=== PATIENT | female | born 1940 | race Caucasian/White ===

== ENCOUNTER 2017-05-17 00:42 | Inpatient (IN) ==
[2017-05-17] MEDS ORDERED: *HR* HYDROmorphone (PF) 1 MG/ML SYRINGE IVP STA (04:21)
[2017-05-17] MEDS ORDERED: *HR* OxyCODONE Immed Rel 5 MG TABLET PO PRN (07:06)
[2017-05-17 07:18] LABS: Prothrombin Time 10.5 Seconds (9.4-12.1)
[2017-05-17 07:24] LABS: BUN/Creatinine Ratio 27 (6-26); Blood Urea Nitrogen 20 mg/dL (7-20); Calcium 8.3 mg/dL (8.6-10.8); Carbon Dioxide 31 mEq/L (19-29); Chloride 93 mEq/L (98-109); Glucose 100 mg/dL (70-99); Magnesium 1.3 mg/dL (1.6-2.6); Osmolality,Calculated 275 (280-300); Potassium 3.5 mEq/L (3.5-4.5); Sodium 131 mEq/L (136-145); eGFR For African Americans > 60 (> 60); eGFR For Non-African Americans > 60 (> 60)
--- NOTE | 2017-05-17 07:39 | Orthopedic Consult Note ---
Date of Encounter: 05/17/17 Time of Encounter: 07:37 History of Present Illness HPI: Ms. Castañeda is a 77 year old female Status post fall yesterday transferred over from [facility] patient tripped over something. Denies head trauma. Denies loss of conscious. Patient will make an alert and oriented 3 Right lower extremity shortened and externally rotated Decreased range of motion secondary to pain Neurovascular intact X-rays show displaced comminuted intertrochanteric hip fracture. Recommendation open reduction into her joint fixation Plan for surgery tomorrow, We reviewed the risks and benefits as well as recovery. All questions were answered. The patient agreed to this treatment plan and appeared to understand the plan is reviewed. Past Med Surg Social Fam HX - Past Medical History Medical history: COPD, coronary artery disease, hypertension, thyroid disease Psychiatric history: anxiety, depression - Past Surgical History Surgical History: appendectomy, hysterectomy - Social History Smoking Status: Current every day smoker Packs per day: 0.5 Smokeless Tobacco Status: No Alcohol use: recent Drug use: none - Family History Mother Living Status: Age at : 56 Cause of : [place] Hx Family Cardiac Disorders: Yes ([place]) Father Living Status: Age at : 78 Cause of : Prostate Cancer Hx Family Respiratory Disorders: Yes (Asthma) Hx Family Cancer: Yes (Prostate Cancer) Medications and Allergies ALPRAZolam [Xanax 0.25 MG Tablet] 0.25 mg PO DAILY 05/17/17 [History] Aspirin [Lo-Dose Aspirin EC] 81 mg PO DAILY 05/17/17 [History] Atorvastatin [Lipitor] 10 mg PO HS 05/17/17 [History] Benazepril HCl [Lotensin] 20 mg PO DAILY 05/17/17 [History] DiphenhydraMINE [Benadryl] 25 mg PO Q6HR PRN 05/17/17 [History] Diphenoxylate/Atropine [Lomotil 2.5 mg/0.025 mg] 1 tab PO DAILY 05/17/17 [ History] Escitalopram Oxalate 10 mg PO DAILY 05/17/17 [History] Escitalopram [Lexapro] 10 mg PO DAILY 05/17/17 [History] Fluticasone/Salmeterol [Advair 500-50 Diskus] 1 each IH BID 05/17/17 [History] Gabapentin [Neurontin] 300 mg PO TID 05/17/17 [History] GuaiFENesin/Pseudophedrine [Mucinex D] 1 each PO DAILY 05/17/17 [History] Ipratropium/Albuterol Sulfate [Combivent Respimat Inhal [place]] 4 gm IH TID 05/17 [History] Levothyroxine [Synthroid] 50 mcg PO 0630 05/17/17 [History] Nicotine [Nicotrol] 10 mg IH DAILY 05/17/17 [History] 3 Allergy/AdvReac Type Severity Reaction Status Date / Time Penicillins Allergy Rash Verified 05/17/17 02:27 All Systems Reviewed: A 10-system review of systems was performed and is negative for pertinent findings except as documented above in the HPI. Physical Exam - Constitutional Vitals: Temp Pulse Resp BP Pulse Ox 97.7 F 75 14 101/61 97 05/17/17 03:56 05/17/17 06:12 05/17/17 03:56 05/17/17 06:12 05/17/17 03:56 Results - Labs Result Diagrams: 05/17/17 06:39 Labs: Abnormal lab results Sodium 131 mEq/L (136-145) L 05/17/17 06:39 Chloride 93 mEq/L (98-109) L 05/17/17 06:39 Carbon Dioxide 31 mEq/L (19-29) H 05/17/17 06:39 BUN/Creatinine Ratio 27 (6-26) H 05/17/17 06:39 Glucose 100 mg/dL (70-99) H 05/17/17 06:39 Calculated Osmolality 275 (280-300) L 05/17/17 06:39 Calcium 8.3 mg/dL (8.6-10.8) L 05/17/17 06:39 Magnesium 1.3 mg/dL (1.6-2.6) L 05/17/17 06:39 All other labs normal. Consult Discharge Plan - Plan Referrals: Peter Magallanes MD [Primary Care Provider] -
[2017-05-17 07:50] LABS: Basophils % 0.2 %; Eosinophils # 0.1 K/mcL (0.0-0.6); Eosinophils % 0.9 %; Hemoglobin 9.3 g/dL (11.5-15.4); Immature Granulocytes % 0.5 % (0-4); Lymphocytes # 0.7 K/mcL (0.6-4.6); Lymphocytes % 8.5 %; Mean Corpuscular HGB Conc 33.2 g/dL (31.6-35.5); Mean Corpuscular Hemoglobin 31.3 pg (28.0-33.3); Mean Corpuscular Volume 94.3 fL (83.0-100.0); Mean Platelet Volume 9.9 fL (9.4-12.4); Monocytes # 0.9 K/mcL (0.0-1.3); Monocytes % 10.4 %; Neutrophils # 6.9 K/mcL (1.6-8.9); Platelet Count 212 K/mcL (140-400); Red Blood Count 2.97 M/mcL (3.82-4.97); Red Cell Distribution Width 14.5 % (11.5-14.5); Segmented Neutrophils % 79.5 %
[2017-05-17] MEDS ORDERED: *HR* Morphine 2 MG/ML SYRINGE IVP PRN (08:10)
[2017-05-17] MEDS ORDERED: Acetaminophen 325 MG TABLET PO PRN (08:10)
[2017-05-17] MEDS ORDERED: Naloxone 0.4 MG/ML INJ IVP PRN (08:10)
[2017-05-17] MEDS ORDERED: Ondansetron 4 MG/2 ML VIAL IVP PRN (08:10)
[2017-05-17] MEDS ORDERED: Magnesium Sulfate 2 GM in D5% in Water 100 ML IVPB ONE ×2 (08:13→14:45)
[2017-05-17] MEDS ORDERED: Pantoprazole 40 MG VIAL IVP SCH ×2 (09:00→15:00)
[2017-05-17] MEDS ORDERED: Magnesium Oxide 400 MG TABLET PO SCH (09:00)
[2017-05-17 09:03] LABS: Hematocrit 28.3 % (35.3-44.9); Hemoglobin 9.4 g/dL (11.5-15.4)
[2017-05-17 09:11] LABS: Prothrombin Time 10.4 Seconds (9.4-12.1)
[2017-05-17 09:13] LABS: Activated Partial Thrombo Time 31.8 Seconds (26.0-36.0)
[2017-05-17 09:22] LABS: eGFR For African Americans > 60 (> 60); eGFR For Non-African Americans > 60 (> 60)
--- NOTE | 2017-05-17 09:36 | Event Note ---
Date of Encounter: 05/17/17 Time of Encounter: 09:34 Magnus seen and exained with [employer]. Right femur fracture after echanical fall. Surgery will be performed. She has poor functional capacity, multiple clinical predictors and coronary artery disease equivelant (caroitd disease) wih no prior cardiac evaluation. Will ask for cardiac clearance. Slight Hb drop due to femur fracture. Full code
--- NOTE | 2017-05-17 10:08 | Internal Med History&Physical ---
Date of Encounter: 05/17/17 Time of Encounter: 08:00 Internal Medicine - H&P: HPI Chief complaint: Abdominal pain/Rectal bleeding Admitted From: Emergency Dept Plans for Post Hospital Care: Home History of present illness: Ms. Castañeda is a 77 year old female wit medical history of arthritis, bladder cancer, alcoholic cirrhosis, aortic aneurysm, and hypertension presents from the ED with chief complaint of right-sided abdominal pain for the past 3-4 days which is becoming progressively worse. Past Med Surg Social Fam HX - Past Medical History Medical history: COPD, coronary artery disease, hypertension, thyroid disease Psychiatric history: anxiety, depression - Past Surgical History Surgical History: appendectomy, hysterectomy - Social History Smoking Status: Current every day smoker Packs per day: 0.5 Smokeless Tobacco Status: No Alcohol use: recent Drug use: none - Family History Mother Living Status: Age at : 56 Cause of : [place] Hx Family Cardiac Disorders: Yes ([place]) Father Living Status: Age at : 78 Cause of : Prostate Cancer Hx Family Respiratory Disorders: Yes (Asthma) Hx Family Cancer: Yes (Prostate Cancer) Internal Medicine - H&P: Meds ALPRAZolam [Xanax 0.25 MG Tablet] 0.25 mg PO DAILY 05/17/17 [History] Aspirin [Lo-Dose Aspirin EC] 81 mg PO DAILY 05/17/17 [History] Atorvastatin [Lipitor] 10 mg PO HS 05/17/17 [History] Benazepril HCl [Lotensin] 20 mg PO DAILY 05/17/17 [History] DiphenhydraMINE [Benadryl] 25 mg PO Q6HR PRN 05/17/17 [History] Diphenoxylate/Atropine [Lomotil 2.5 mg/0.025 mg] 1 tab PO DAILY 05/17/17 [ History] Escitalopram Oxalate 10 mg PO DAILY 05/17/17 [History] Escitalopram [Lexapro] 10 mg PO DAILY 05/17/17 [History] Fluticasone/Salmeterol [Advair 500-50 Diskus] 1 each IH BID 05/17/17 [History] Gabapentin [Neurontin] 300 mg PO TID 05/17/17 [History] GuaiFENesin/Pseudophedrine [Mucinex D] 1 each PO DAILY 05/17/17 [History] Ipratropium/Albuterol Sulfate [Combivent Respimat Inhal [place]] 4 gm IH TID 05/17 [History] Levothyroxine [Synthroid] 50 mcg PO 0630 05/17/17 [History] Nicotine [Nicotrol] 10 mg IH DAILY 05/17/17 [History] 3 Allergy/AdvReac Type Severity Reaction Status Date / Time Penicillins Allergy Rash Verified 05/17/17 02:27 All Systems PM: A 10-system review of systems was performed and is negative for pertinent findings except as documented above in the HPI. - Constitutional Vitals: Temp Pulse Resp BP Pulse Ox 97.6 F 89 14 94/61 95 05/17/17 07:43 05/17/17 07:43 05/17/17 07:43 05/17/17 07:43 05/17/17 07:43 Internal Med - H&P Results - Labs CBC & Chem 7: 05/17/17 08:47 05/17/17 08:47 Labs: Short CBC 05/17/17 05/17/17 Range/Units 06:39 08:47 WBC 8.7 (4.3-11.1) K/mcL Hgb 9.3 L 9.4 L (11.5-15.4) g/dL Hct 28.0 L 28.3 L (35.3-44.9) % Plt Count 212 (140-400) K/mcL Neutrophils # 6.9 (1.6-8.9) K/mcL BMP 05/17/17 05/17/17 06:39 08:47 Sodium 131 L Potassium 3.5 Chloride 93 L Carbon Dioxide 31 H BUN 20 Creatinine 0.74 0.70 Glucose 100 H Calcium 8.3 L - Impressions ITS Impressions Head CT 05/17/17 02:30 IMPRESSION: No acute intracranial abnormality. D/ / Hossein Murphy MD / Hossein Murphy MD Interpreting Provider: Hossein Murphy MD
[2017-05-17] MEDS: Ipratropium/Albuterol Neb 3 ML IH SCH ×3 (10:19→23:13)
--- NOTE | 2017-05-17 12:18 | Cardiology Consult Note ---
<Flavio Dwyer - Last Filed: 05/17/17 12:10> Date of Encounter: 05/17/17 Time of Encounter: 11:50 Assessment and Plan (1) Pre-operative cardiovascular examination Current Visit: Yes Status: Acute No previous history of CAD. Stable SOB in the setting of COPD. No anginal symptoms. EKG shows SR with no acute ST changes. Reports history of mitral valve prolapse. TTE 2012 showed normal EF and mild mitral regurgitation. TTE ordered by primary team. If no concerning findings on TTE no further cardiac testing indicated. Acceptable risk for surgery. Discussion w patient/family: The assessment and plan as outlined above was discussed with the patient and/or family members who expressed understanding and agreement. All questions were answered. Thank you for involving us in the care of your patient. Please call with any questions. History of Present Illness Consult date: 05/17/17 Consult reason: Pre-operative risk assessment Chief complaint: Fall History of present illness: Ms. Castañeda is a 77 year old female with a past medical history of COPD on home O2 , HTN, anemia, and mitral valve prolapse who presented after tripping at home and falling on her her right hip. She developed a right femur fracture. Cardiology consulted for cardiovascular risk assessment. She denies history of CAD. Reports being told she had MVP 30 years ago. Denies dizziness or syncope. Denies chest pain or palpitations. Denies orthopnea , PND or edema. She is on home O2 mostly at night for COPD. Denies increasing SOB. She is able to climb some stairs and walks short distances. She has limited mobility after vertebrae fracture one and a half years ago. Previous cardiac work-up: TTE 2012- EF 60%. Mild diastolic dysfunction. Mild MR. Past Med Surg Social Fam HX - Past Medical History Attestation: Yes The following information was validated with the patient. Medical history: COPD, hypertension, thyroid disease Psychiatric history: anxiety, depression - Past Surgical History Surgical History: appendectomy, hysterectomy - Social History Smoking Status: Current every day smoker Packs per day: 0.5 Smokeless Tobacco Status: No Alcohol use: recent Drug use: none - Family History Mother Living Status: Age at : 56 Cause of : [place] Hx Family Cardiac Disorders: Yes ([place]) Father Living Status: Age at : 78 Cause of : Prostate Cancer Hx Family Respiratory Disorders: Yes (Asthma) Hx Family Cancer: Yes (Prostate Cancer) Medications and Allergies ALPRAZolam [Xanax 0.25 MG Tablet] 0.25 mg PO DAILY 05/17/17 [History] Aspirin [Lo-Dose Aspirin EC] 81 mg PO DAILY 05/17/17 [History] Atorvastatin [Lipitor] 10 mg PO HS 05/17/17 [History] Benazepril HCl [Lotensin] 20 mg PO DAILY 05/17/17 [History] DiphenhydraMINE [Benadryl] 25 mg PO Q6HR PRN 05/17/17 [History] Escitalopram [Lexapro] 10 mg PO DAILY 05/17/17 [History] Fluticasone/Salmeterol [Advair 500-50 Diskus] 1 puff IH BID 05/17/17 [History] Gabapentin [Neurontin] 300 mg PO TID 05/17/17 [History] Ipratropium/Albuterol Sulfate [Combivent Respimat Inhal [place]] 1 puff IH TID [History] Levothyroxine [Synthroid] 75 mcg PO DAILY 05/17/17 [History] hydroCHLOROthiazide [Hydrochlorothiazide] 25 mg PO DAILY 05/17/17 [History] 3 Allergy/AdvReac Type Severity Reaction Status Date / Time Penicillins Allergy Rash Verified 05/17/17 02:27 All Systems Review: A 10-system review of systems was performed and is negative for pertinent findings except as documented above in the HPI. Physical Examination Vital Signs, Last 4 Hours Temp Pulse Resp BP Pulse Ox 05/17/17 10:37 98.2 F 85 14 98/63 94 General: Conversant, No Apparent Distress, Other (assessment limited to immobility from hip fracture and echocardiogram in progress. ) HEENT: Atraumatic, Normocephaly, Mucus Membranes Moist Neck: No JVD, Normal carotid pulses Cardiac: Reg Rate and Rhythm, Normal S1 and S2 Lungs: Normal Breath Sounds, No Wheeze, Rales, Rhonchi Neuro: Alert and responsive, No focal deficits noted Abdomen: Soft, Non-Tender Skin: No rashes noted on visualized skin Musculoskeletal: No Chest Wall Tenderness Extremities: No Clubbing, No Cyanosis, Normal Pulses, Other (trace edema left ankle) Results 05/17/17 08:47 05/17/17 08:47 Lab Results 05/17/17 05/17/17 05/17/17 06:39 06:39 06:39 WBC 8.7 Hgb 9.3 L Hct 28.0 L Plt Count 212 INR 1.0 APTT Sodium 131 L Potassium 3.5 Chloride 93 L Carbon Dioxide 31 H BUN 20 Creatinine 0.74 Glucose 100 H Calcium 8.3 L Magnesium 1.3 L 05/17/17 05/17/17 05/17/17 08:47 08:47 08:47 WBC Hgb 9.4 L Hct 28.3 L Plt Count INR 1.0 APTT 31.8 Sodium Potassium Chloride Carbon Dioxide BUN Creatinine 0.70 Glucose Calcium Magnesium - Imaging and Cardiology Echo: pending, report reviewed - EKG Interpretation EKG results cardiology: personally reviewed (SR with no acute ST changes) Consult Discharge Plan - Plan Referrals: Peter Magallanes MD [Primary Care Provider] - <JoemarklandyDomingo - Last Filed: 05/17/17 22:15> Date of Encounter: 05/17/17 - Attending Attestation I have personally performed a face to face evaluation on this patient. I have reviewed and agree with the care plan. History and Exam by me shows: 77 YOF with no previous cardiac hx and no CRF's presents after R femur fracture. EKG NSR unremarkable and ECHO with preserved EF and no major valvular abnormalities. 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 Low to moderate risk for cardiac events with surgery. Assessment and Plan Discussion w patient/family: The assessment and plan as outlined above was discussed with the patient and/or family members who expressed understanding and agreement. All questions were answered. Thank you for involving us in the care of your patient. Please call with any questions. History of Present Illness History of present illness: Ms. Castañeda is a 77 year old female All Systems Review: A 10-system review of systems was performed and is negative for pertinent findings except as documented above in the HPI. Physical Examination Vital Signs, Last 4 Hours Temp Pulse Resp BP Pulse Ox 05/17/17 20:48 98.0 F 67 17 95/55 95 Results 05/17/17 08:47 05/17/17 08:47 Lab Results 05/17/17 05/17/17 05/17/17 06:39 06:39 06:39 WBC 8.7 Hgb 9.3 L Hct 28.0 L Plt Count 212 INR 1.0 APTT Sodium 131 L Potassium 3.5 Chloride 93 L Carbon Dioxide 31 H BUN 20 Creatinine 0.74 Glucose 100 H Calcium 8.3 L Magnesium 1.3 L 05/17/17 05/17/17 05/17/17 08:47 08:47 08:47 WBC Hgb 9.4 L Hct 28.3 L Plt Count INR 1.0 APTT 31.8 Sodium Potassium Chloride Carbon Dioxide BUN Creatinine 0.70 Glucose Calcium Magnesium
--- NOTE | 2017-05-17 12:31 | Internal Med History&Physical ---
<DaraJuancho encarnacion - Last Filed: 05/17/17 13:15> Date of Encounter: 05/17/17 Time of Encounter: 08:00 Assessment and Plan (1) Fracture of right femur Current visit: Yes Status: Acute Patient reports tripping and falling yesterday evening and landing on her right hip. Patient was seen at [facility] and transferred to [place] ED. imaging from [facility] shows acute, varus angulated, comminuted intertrochanteric fracture of the right femur with no additional fractures. Orthopedic consult ordered who will perform surgical intervention following medical and cardiology clearance. Pt. reports pain >10 with movement of leg, but 1-2 with stabilization. Stair-step pain medication for pain management. NPO at midnight for surgery. PT/OT consults ordered for post-surgical recommendations. Falls/safety precautions post-surgery. Patient high risk for further morbidity based on current symptoms, surgical intervention , and risk factors. Inpatient. Qualifiers: Encounter type: initial encounter Femur location: intertrochanteric Fracture type: closed Fracture alignment: nondisplaced Qualified Code(s): S72.144A - Nondisplaced intertrochanteric fracture of right femur, initial encounter for closed fracture (2) Pre-operative cardiovascular examination Current visit: Yes Status: Acute Cardiology consult ordered and discussed w/Dr. Loyd for surgical clearance for repair of right femur fx. Previous TTE in 2012 showed EF of 60% w/mild diastolic dysfunction and mild MR. Revised cardiac risk index (RCRI) is 1.0% ( one risk factor of CAD according to [facility] medical records). (3) COPD (chronic obstructive pulmonary disease) Current visit: Yes Status: Chronic Hx of chronic COPD. Patient reports mild SOB d/t current COPD dx and smoking status. Continue pts. inhalers, DuoNebs Q8, supplemental O2 w/titration and SpO2 monitoring. Qualifiers: COPD type: emphysema Emphysema type: unspecified Qualified Code(s): J43.9 - Emphysema, unspecified (4) HTN (hypertension) Current visit: Yes Status: Chronic Hx of chronic HTN. Monitor pt. and VS. Lisinopril 20 mg daily ordered. Qualifiers: Hypertension type: essential hypertension Qualified Code(s): I10 - Essential (primary) hypertension (5) HLD (hyperlipidemia) Current visit: Yes Status: Chronic Hx of chronic HLD. Lipid panel ordered in a.m. labs. Continue patient's Lipitor. Qualifiers: Hyperlipidemia type: pure hypercholesterolemia Qualified Code(s): E78.00 - Pure hypercholesterolemia, unspecified; E78.0 - Pure hypercholesterolemia (6) History of shingles Current visit: Yes Status: Chronic Pt reports recent shingles with head and face affected. Lesions have healed but nerve pain remains. Continue pts. Neurontin. (7) Carotid artery stenosis, asymptomatic Current visit: Yes Status: Chronic Hx of carotid artery stenosis and CAD. Asymptomatic. Repeat carotid Doppler duplex imaging. Will continue patient's HTN and HLD medications as well as aspirin therapy. Qualifiers: Laterality: unspecified laterality Qualified Code(s): I65.29 - Occlusion and stenosis of unspecified carotid artery (8) Hx of fall Current visit: Yes Status: Chronic Hx of chronic falls at home. Falls/safety precautions. PT/OT consults ordered to assess for post-discharge planning. (9) Thyroid disease Current visit: Yes Status: Chronic Hx of chronic thyroid disease. Continue patient's Synthroid. (10) DVT prophylaxis Current visit: Yes Status: Acute Bilateral SCDs of the LEs for DVT prophylaxis d/t impending surgical intervention for femur fx repair. Internal Medicine - H&P: HPI Chief complaint: Right leg injury/Fracture Admitted From: Emergency Dept Plans for Post Hospital Care: Home History of present illness: Ms. 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 Patient reports she fell after tripping injuring her right hip. Patient reports right lip pain >10 with movement of leg, otherwise 1-2 if leg stabilized and SOB r/t COPD. Patient denies recent illness, nausea, vomiting, fever, chills, abdominal pain, chest pain, lightheadedness, dizziness, headache, numbness, tingling, changes in vision, unusual bleeding, presyncope, or syncope. Past Med Surg Social Fam HX - Past Medical History Source: patient, old records reviewed, obtained from family Medical history: COPD, hypertension, thyroid disease, other (Strokes of the eye vasculature, chronic anemia, mitral valve prolapse) Psychiatric history: anxiety, depression - Past Surgical History Surgical History: appendectomy, hysterectomy, orthopedic, other - Social History Smoking Status: Current every day smoker Packs per day: 0.5 PPD Smokeless Tobacco Status: No Alcohol use: recent Drug use: none Current living situation: Home, With Family Activity Level: Independent ambulation Recent Out of Country Travel Within the Last 8 Weeks: No Exposure or Possible Exposure to Illness During Travel: No - Family History Mother Race: Family Member Ethnicity: Non- Living Status: Age at : 56 Cause of : DE Hx Family Cardiac Disorders: Yes (DE) Father Race: Family Member Ethnicity: Non- Living Status: Age at : 78 Cause of : Prostate Cancer Hx Family Respiratory Disorders: Yes (Asthma) Hx Family Cancer: Yes (Prostate Cancer) Brother Race: Family Member Ethnicity: Non- Living Status: Age at : 79 Cause of : Prostate cancer Hx Family Cancer: Yes (Prostate) Sister Race: Family Member Ethnicity: Non- Living Status: Age at : 42 Cause of : Colon cancer Hx Family Cardiac Disorders: Yes (Stroke, DE) Hx Family Cancer: Yes (Colon) Son Race: Family Member Ethnicity: Non- Living Status: Age at : 42 Cause of : Squamous cell carcinoma Hx Family Cancer: Yes (SCC) Internal Medicine - H&P: Meds ALPRAZolam [Xanax 0.25 MG Tablet] 0.25 mg PO DAILY 05/17/17 [History] Aspirin [Lo-Dose Aspirin EC] 81 mg PO DAILY 05/17/17 [History] Atorvastatin [Lipitor] 10 mg PO HS 05/17/17 [History] Benazepril HCl [Lotensin] 20 mg PO DAILY 05/17/17 [History] DiphenhydraMINE [Benadryl] 25 mg PO Q6HR PRN 05/17/17 [History] Escitalopram [Lexapro] 10 mg PO DAILY 05/17/17 [History] Fluticasone/Salmeterol [Advair 500-50 Diskus] 1 puff IH BID 05/17/17 [History] Gabapentin [Neurontin] 300 mg PO TID 05/17/17 [History] Ipratropium/Albuterol Sulfate [Combivent Respimat Inhal [place]] 1 puff IH TID [History] Levothyroxine [Synthroid] 75 mcg PO DAILY 05/17/17 [History] hydroCHLOROthiazide [Hydrochlorothiazide] 25 mg PO DAILY 05/17/17 [History] 3 Allergy/AdvReac Type Severity Reaction Status Date / Time Penicillins Allergy Rash Verified 05/17/17 02:27 All Systems PM: A 10-system review of systems was performed and is negative for pertinent findings except as documented above in the HPI. - Constitutional Constitutional: no chills, no fever(s), no night sweats - EENT Eyes: no change in vision, no discharge, no pain, no photophobia Ears: no ear discharge, no ear pain, no tinnitus Nose, mouth and throat: no dysphagia, no nasal discharge, no neck pain, no sore throat - Breasts Breasts: as per HPI - Cardiovascular Cardiovascular ROS IM: no chest pain, no diaphoresis, no dyspnea, no lightheadedness, no palpitations, no syncope - Respiratory Respiratory: as per HPI, no cough, no dyspnea, no wheezing, no excessive phlegm production - Gastrointestinal Gastrointestinal: no abdominal pain, no diarrhea, no hematemesis, no hematochezia, no melena, no nausea, no vomiting - Genitourinary Genitourinary: no change in urinary stream, no dysuria, no flank pain, no hematuria Menstruation: as per HPI, post hysterectomy - Musculoskeletal Musculoskeletal ROS IM: as per HPI, other (Right leg pain d/t femur fx), no numbness, no tingling - Integumentary Integumentary IM: no rash, no unusual bruising - Neurological Neurological ROS: no confusion, no convulsions, no focal weakness, no numbness, no tingling, no tremor(s) - Psychiatric Psychiatric: as per HPI - Endocrine Endocrine IM: as per HPI - Hematologic/Lymphatic Hematologic/Lymphatic: no easy bruising - Allergic/Immunologic Allergic/Immunologic: as per HPI - Constitutional Vitals: Temp Pulse Resp BP Pulse Ox 98.2 F 85 14 98/63 94 05/17/17 10:37 05/17/17 10:37 05/17/17 10:37 05/17/17 10:37 05/17/17 10:37 General appearance: Present: cooperative, mild distress, A&O X 3, pleasant, answers questions appropriately - Head Head exam: Present: atraumatic, normocephalic - Eye Eye exam: Present: PERRL, conjuntiva pink, sclera anicteric Pupils: Present: PERRL - ENT ENT exam: Present: normal exam, normal external ear exam - Neck Neck exam general surgery: Present: normal inspection, supple, trachea midline. Absent: lymphadenopathy - Respiratory Respiratory exam: Present: CTAB. Absent: accessory muscle use, rales, rhonchi, wheezes - Cardiovascular Cardiovascular exam: Present: RRR, +S1, +S2. Absent: diastolic murmur, gallop, rubs, systolic murmur - GI/Abdominal GI/Abdominal exam: Present: normal bowel sounds, soft, no peritoneal signs. Absent: distended, tenderness - Rectal Rectal exam: Present: deferred - Additional comments: exam deferred. - Extremities Exam Extremities exam: Present: tenderness (Right thigh and hip pain), warm, radial pulses palpable and symmetrical. Absent: calf tenderness, cyanotic, pedal edema - Expanded Lower Extremities Exam Upper Leg exam: Present: tenderness (Right thigh and hip pain) - Back Exam Back exam: Present: normal inspection - Neurological Exam Neurological exam: Present: CN II-XII intact, oriented X3, no focal deficits. Absent: pronater drift, facial droop, speech deficit - Psychiatric Psychiatric exam: Present: normal affect, normal mood - Skin Skin exam: Present: dry, intact Internal Med - H&P Results - Labs CBC & Chem 7: 05/17/17 08:47 05/17/17 08:47 Labs: Short CBC 05/17/17 05/17/17 Range/Units 06:39 08:47 WBC 8.7 (4.3-11.1) K/mcL Hgb 9.3 L 9.4 L (11.5-15.4) g/dL Hct 28.0 L 28.3 L (35.3-44.9) % Plt Count 212 (140-400) K/mcL Neutrophils # 6.9 (1.6-8.9) K/mcL BMP 05/17/17 05/17/17 06:39 08:47 Sodium 131 L Potassium 3.5 Chloride 93 L Carbon Dioxide 31 H BUN 20 Creatinine 0.74 0.70 Glucose 100 H Calcium 8.3 L - Impressions ITS Impressions Head CT 05/17/17 02:30 IMPRESSION: No acute intracranial abnormality. D/ / Hossein Murphy MD / Hossein Murphy MD Interpreting Provider: Hossein Murphy MD - Diagnostic Studies CT scan - head Additional comments: Impressions Head CT 05/17/17 02:30 IMPRESSION: No acute intracranial abnormality. D/ / Hossein Murphy MD / Hossein Murphy MD Interpreting Provider: Hossein Murphy MD <Queta Talbert - Last Filed: 05/17/17 23:07> Date of Encounter: 05/17/17 Internal Medicine - H&P: HPI History of present illness: Ms. Castañeda is a 77 year old female All Systems PM: A 10-system review of systems was performed and is negative for pertinent findings except as documented above in the HPI. - Constitutional Vitals: Temp Pulse Resp BP Pulse Ox 98.0 F 67 17 95/55 95 05/17/17 20:48 05/17/17 20:48 05/17/17 20:48 05/17/17 20:48 05/17/17 20:48 Internal Med - H&P Results - Labs CBC & Chem 7: 05/17/17 08:47 05/17/17 08:47 Labs: Short CBC 05/17/17 05/17/17 Range/Units 06:39 08:47 WBC 8.7 (4.3-11.1) K/mcL Hgb 9.3 L 9.4 L (11.5-15.4) g/dL Hct 28.0 L 28.3 L (35.3-44.9) % Plt Count 212 (140-400) K/mcL Neutrophils # 6.9 (1.6-8.9) K/mcL BMP 05/17/17 05/17/17 06:39 08:47 Sodium 131 L Potassium 3.5 Chloride 93 L Carbon Dioxide 31 H BUN 20 Creatinine 0.74 0.70 Glucose 100 H Calcium 8.3 L - Impressions ITS Impressions Head CT 05/17/17 02:30 IMPRESSION: No acute intracranial abnormality. D/ / Hossein Murphy MD / Hossein Murphy MD Interpreting Provider: Hossein Murphy MD Echocardiogram 05/17/17 09:28 Impressions: LVEF 60-65%. Normal LV chamber size, wall thickness and function. Mild left ventricular diastolic dysfunction. Moderately sclerotic aortic valve leaflets. Mild pulmonary hypertension. There is a small pericardial effusion present. There is no echocardiographic evidence of tamponade. Aortic Valve Gradient not evaluated Left Ventricular Wall Motion: Rest Echo Findings All wall segments showed normal motion. Findings: Study Quality * Technically adequate exam. Left Ventricle * LVEF 60-65%. * Normal LV chamber size, wall thickness and function. * Mild left ventricular diastolic dysfunction. Right Ventricle * Normal right ventricular structure and function. Left Atrium * Normal left atrial size. Right Atrium * Normal right atrial size. Aortic Valve * Trileaflet aortic valve. * Moderately sclerotic aortic valve leaflets. * No aortic regurgitation. * Aortic valve leaflets are not restricted. Mitral Valve * Normal mitral valve structure and function. Tricuspid Valve * Estimated RVSP is 39 mmHg. * Estimated RA pressure is 5 mmHg. * Mild pulmonary hypertension. Pulmonic Valve * Pulmonic valve not well visualized. Aorta * Normally sized aortic root. Pericardium * There is a small pericardial effusion present. * There is no echocardiographic evidence of tamponade. IVC * Normal IVC dimensions and inspiratory collapse. - Attending Attestation Patient evaluated and assessed along with MILL ATTENDANT and agree with the detailed H&P below, except- Patient reported to drink half bottle of wine per day. Will do CIWA protocol and monitor for withdrawal symptoms.
[2017-05-17] MEDS: 0.9 % Sodium Chloride 1,000 ML IVC SCH (15:25)
[2017-05-17] MEDS: Gabapentin 300 MG CAPSULE PO SCH ×2 (15:26→20:15)
[2017-05-17] MEDS: *HR* HYDROcodone/Acet 5/325 mg TABLET PO PRN (20:15)
[2017-05-18] MEDS: 0.9 % Sodium Chloride 1,000 ML IVC SCH (01:02)
[2017-05-18] MEDS: *HR* HYDROcodone/Acet 5/325 mg TABLET PO PRN ×2 (01:06→05:08)
[2017-05-18 05:03] LABS: Basophils % 0.3 %; Eosinophils # 0.1 K/mcL (0.0-0.6); Eosinophils % 1.4 %; Hematocrit 23.9 % (35.3-44.9); Immature Granulocytes % 0.3 % (0-4); Lymphocytes # 0.6 K/mcL (0.6-4.6); Mean Corpuscular HGB Conc 32.6 g/dL (31.6-35.5); Mean Corpuscular Hemoglobin 31.5 pg (28.0-33.3); Mean Corpuscular Volume 96.4 fL (83.0-100.0); Mean Platelet Volume 10.1 fL (9.4-12.4); Monocytes # 0.9 K/mcL (0.0-1.3); Monocytes % 12.8 %; Neutrophils # 5.1 K/mcL (1.6-8.9); Platelet Count 158 K/mcL (140-400); Red Blood Count 2.48 M/mcL (3.82-4.97); Red Cell Distribution Width 14.6 % (11.5-14.5); Segmented Neutrophils % 76.2 %
[2017-05-18 05:06] LABS: Hemoglobin 7.8 g/dL (11.5-15.4)
[2017-05-18 05:28] LABS: Hemoglobin A1C 4.6 %
[2017-05-18 05:38] LABS: Alanine Aminotransferase 9 Units/L (0-55); Albumin 2.4 g/dL (3.5-5.0); Albumin/Globulin Ratio 1.1 (1.1-2.2); Alkaline Phosphatase 51 Units/L (38-126); Aspartate Amino Transferase 17 Units/L (5-34); BUN/Creatinine Ratio 20 (6-26); Bilirubin,Total 0.5 mg/dL (0.2-1.2); Blood Urea Nitrogen 15 mg/dL (7-20); Calcium 7.9 mg/dL (8.6-10.8); Carbon Dioxide 31 mEq/L (19-29); Chloride 95 mEq/L (98-109); Cholesterol 107 mg/dL (< 200); Globulin 2.2 g/dL (2.4-3.5); Glucose 98 mg/dL (70-99); HDL Cholesterol 54 mg/dL (40-59); LDL Cholesterol,Calculated 43 mg/dL (0-99); Magnesium 1.6 mg/dL (1.6-2.6); Osmolality,Calculated 273 (280-300); Potassium 3.5 mEq/L (3.5-4.5); Sodium 131 mEq/L (136-145); Total Protein 4.6 g/dL (6.0-8.3); Triglycerides 51 mg/dL (< 150); eGFR For African Americans > 60 (> 60); eGFR For Non-African Americans > 60 (> 60)
--- NOTE | 2017-05-18 07:13 | Anesthesia Evaluation PreOp ---
Date of Encounter: 05/18/17 Time of Encounter: 07:10 - Past History Planned Operation: right hip TFN Cardiac History: HTN, Hyperlipidemia, Other (MVP) Pulmonary History: Smoker, COPD (O2 use at night) [employer] History: CVA (loss of vision left eye) Other Medical History: Thyroid (hypo) Anesthesia History: No Prior Anesthetic Complications, Past Anesthesia ([place], orthopedic, appy) : No Alcohol Use: recent Drug use: none Medications and Allergies ALPRAZolam [Xanax 0.25 MG Tablet] 0.25 mg PO DAILY 05/17/17 [History] Aspirin [Lo-Dose Aspirin EC] 81 mg PO DAILY 05/17/17 [History] Atorvastatin [Lipitor] 10 mg PO HS 05/17/17 [History] Benazepril HCl [Lotensin] 20 mg PO DAILY 05/17/17 [History] DiphenhydraMINE [Benadryl] 25 mg PO Q6HR PRN 05/17/17 [History] Escitalopram [Lexapro] 10 mg PO DAILY 05/17/17 [History] Fluticasone/Salmeterol [Advair 500-50 Diskus] 1 puff IH BID 05/17/17 [History] Gabapentin [Neurontin] 300 mg PO TID 05/17/17 [History] Ipratropium/Albuterol Sulfate [Combivent Respimat Inhal [place]] 1 puff IH TID [History] Levothyroxine [Synthroid] 75 mcg PO DAILY 05/17/17 [History] hydroCHLOROthiazide [Hydrochlorothiazide] 25 mg PO DAILY 05/17/17 [History] 3 Allergy/AdvReac Type Severity Reaction Status Date / Time Penicillins Allergy Rash Verified 05/17/17 02:27 - Meds/Allergy Pre-op Review Medications Reviewed: Yes Allergies Reviewed: Yes Beta Blockers on Current Med List: No Anesthesia Results - Labs 05/18/17 03:45 05/18/17 03:45 - Imaging EKG: report reviewed (nsr) Additional studies: Echo: LVEF 60-65%. Normal LV chamber size, wall thickness and function. Mild left ventricular diastolic dysfunction. Moderately sclerotic aortic valve leaflets. Mild pulmonary hypertension. There is a small pericardial effusion present. There is no echocardiographic evidence of tamponade. Aortic Valve Gradient not evaluated Anesthesia Exam Selected Entries 05/18/17 07:02 Temperature 98.5 F Pulse Rate 83 Respiratory Rate 15 Blood Pressure 100/60 O2 Sat by Pulse Oximetry 97 Weight: 51kg NPO (# of Hours): 8 - HEENT Pupil (Motor): EOMI Mallampati: II Teeth: Normal Oral Opening: Greater than 3 - [employer] LOC: Oriented [employer] Motor: Normal RUE, Normal LUE, Normal RLE, Normal LLE, Normal Face [employer] Sensory: Normal: RUE, LUE, RLE, LLE, Face (blind left eye) - Cardiac Rhythm: Regular Murmur: None - Pulmonary Breath Sounds: bilateral Clear Respiratory Effort: Symmetrical Anesthesia Assess/Plan ASA Score: 3 Modified Maira Scale for Level of Consciousness: Cooperative, oriented, and tranquil Anesthetic Plan: General Monitoring Plan: Standard Monitors Recovery Plan: PACU (discussed GA, agrees to proceed)
--- NOTE | 2017-05-18 07:19 | Orthopedics Progress Note ---
Date of Encounter: 05/18/17 Time of Encounter: 07:18 Subjective Interval history: Patient seen this morning complains of pain right hip patient is ready for surgery and this morning. Objective Vital signs: Vital Signs Temp Pulse Resp BP Pulse Ox 05/18/17 07:02 98.5 F 83 15 100/60 97 05/18/17 03:33 98.1 F 80 18 99/55 94 05/17/17 23:53 98.2 F 85 18 98/56 93 05/17/17 23:13 18 95 05/17/17 20:48 98.0 F 67 17 95/55 95 05/17/17 17:11 98.1 F 83 14 92/50 90 05/17/17 16:09 17 95 05/17/17 10:37 98.2 F 85 14 98/63 94 05/17/17 10:20 16 95 05/17/17 07:43 97.6 F 89 14 94/61 95 Intake and Output 05/17/17 05/17/17 05/18/17 15:59 23:59 07:59 Intake Total 240 / 240 1000 / 1000 Output Total 350 / 350 500 / 500 Balance -110 / -110 500 / 500 Intake: IV Fluids 1000 / 1000 0.9 % Sodium Chloride 1,000 ML 1000 / 1000 @ 100 mls/hr IVC .Q10H RABIA Rx#: [id number] Oral 240 / 240 Output: Catheter 350 / 350 500 / 500 Other: Meal Breakfast Percent of Meal Consumed 75% # Bowel Movements 0 Weight 51.5 kg Blood Glucose* 108 143 105 Patient Weight 05/18/17 23:59 Weight 51.5 kg - Labs CBC & BMP: 05/18/17 03:45 05/18/17 03:45 Labs: Abnormal lab results RBC 2.48 M/mcL (3.82-4.97) L 05/18/17 03:45 Hgb 7.8 g/dL (11.5-15.4) L D 05/18/17 03:45 Hct 23.9 % (35.3-44.9) L 05/18/17 03:45 RDW 14.6 % (11.5-14.5) H 05/18/17 03:45 Sodium 131 mEq/L (136-145) L 05/18/17 03:45 Chloride 95 mEq/L (98-109) L 05/18/17 03:45 Carbon Dioxide 31 mEq/L (19-29) H 05/18/17 03:45 POC Glucose 143 (58-89) H 05/17/17 20:15 Calculated Osmolality 273 (280-300) L 05/18/17 03:45 Calcium 7.9 mg/dL (8.6-10.8) L 05/18/17 03:45 Serum Total Protein 4.6 g/dL (6.0-8.3) L 05/18/17 03:45 Albumin 2.4 g/dL (3.5-5.0) L 05/18/17 03:45 Globulin 2.2 g/dL (2.4-3.5) L 05/18/17 03:45 - VTE Documentation of Mechanical Device: Intermittent pneumatic compression device Consult Discharge Plan - Plan Referrals: Peter Magallanes MD [Primary Care Provider] -
[2017-05-18] MEDS ORDERED: Albuterol 2.5 MG/3 ML NEBULIZER ONE ×2 (07:31→09:27)
[2017-05-18] MEDS ORDERED: Acetaminophen IV 1,000 MG/100 ML INFUS..BTL ONE (08:08)
[2017-05-18] MEDS: Ipratropium/Albuterol Neb 3 ML IH SCH ×3 (08:08→22:32)
[2017-05-18] MEDS ORDERED: *HR* FentaNYL (PF) 100 MCG/2 ML VIAL ONE (08:21)
[2017-05-18] MEDS ORDERED: Lidocaine -MPF 2% 2 ML VIAL ONE (08:21)
[2017-05-18] MEDS ORDERED: Lidocaine -MPF 4% 5 ML AMPUL ONE (08:21)
[2017-05-18] MEDS ORDERED: *HR* Phenylephrine 10 MG/ML VIAL ONE (08:21)
[2017-05-18] MEDS ORDERED: *HR* Succinylcholine 200 MG/10 ML VIAL IVP ONE (08:21)
[2017-05-18] MEDS ORDERED: *HR* Propofol 200 MG/20 ML VIAL IVP ONE (08:21)
[2017-05-18] MEDS ORDERED: Ondansetron 4 MG/2 ML VIAL IVP PRN ×2 (08:24→10:26)
[2017-05-18] MEDS ORDERED: *HR* HYDROmorphone (PF) 1 MG/ML SYRINGE IVP PRN (08:24)
[2017-05-18] MEDS ORDERED: *HR* Labetalol 20 MG/4 ML SYRINGE IVP PRN (08:24)
[2017-05-18] MEDS ORDERED: Lisinopril 20 MG TABLET PO SCH (09:00)
[2017-05-18] MEDS ORDERED: Aspirin Enteric Coated 81 MG Tablet PO SCH (09:00)
--- NOTE | 2017-05-18 09:02 | Orthopedic Operative Note ---
Date of procedure: 05/18/17 Pre-op diagnosis: Comminuted displaced right intertrochanteric hip fracture Post-op diagnosis: same Procedure: Procedure: Right hip open reduction intramedullary nail fixation Estimated blood loss: 50 cc Hardware: Metal: 10 x 130 Synthes TFN, 95 helical blade, 36 moment distal locking bolt Procedural Notes: Vipul comminuted and displaced fracture. With shortening Operative procedure: The patient was brought to the operating room and placed on the operating room table. After general anesthesia was administered the well leg was place in the well leg belle and the operative leg was placed in the fracture leg belle. All pressure points were padded appropriately. The operative extremity was prepped and draped in the sterile surgical fashion patient received IV antibiotic prior to skin incision. A standard direct lateral approach was made over the entry point of the greater trochanter, the incision was made through the skin and subcutaneous tissue hemostasis was obtained with Bovie cautery. Using careful sharp dissection the fascia was identified and incised, flouroscopic assistance was used to identify the entry point. The guidepin was placed at the entry point using fluroscopic assistance, it was over reamed with the proximal reamer. The 10 x 130 nail was placed through the entry hole, across the fracture site into the distal fragment. the position was confirmed with fluroscopy. A guide pin was placed through the proximal locking guide from the lateral femur through the nail across the fracture site into the femoral head, it was over reamed with the reamer. The 95 mm helical blade was placed over the guide pin through the nail into the femoral head, locked in place with the proximal locking bolt. There is 6 mm Distal locking bolt was placed through the distal locking guide. position of hardware and fracture reduction found to be acceptable with fluroscopic assistance. The wound was irrigated. Fascia was closed with a running #2 PDS suture. The deep tissue was irrigated and closed deep with #1 PDS suture superficially with 0 PDS suture and skin was closed with zip tie The patient was placed in a sterile dressing The patient was extubated and transferred to the recovery room in stable condition. Anesthesia: GETA Surgeon: Kike Odom Condition: stable Disposition: PACU
[2017-05-18 09:45] LABS: Hematocrit 24.3 % (35.3-44.9); Hemoglobin 8.1 g/dL (11.5-15.4)
--- NOTE | 2017-05-18 10:08 | Anesthesia Evaluation Post Op ---
Date of Encounter: 05/18/17 Time of Encounter: 10:07 - Vital Signs Vital Signs: Selected Entries 05/18/17 09:38 05/18/17 09:48 Temperature 97.3 F L Pulse Rate 75 Respiratory Rate 16 Blood Pressure 109/69 O2 Sat by Pulse Oximetry 100 Oxygen Flow Rate (LPM) 3 - Lungs Lungs: Wheezes (scattered, treated with albuterol) - Airway Airway: Non-obstructed - Cardiovascular Regular Rate - Mental Status Mental Status: Alert & Oriented, Answers Appropriately - Pain Pain Scale: 1 Pain Scale used: Numeric (1 - 10) - Nausea Vomiting Nausea Vomiting: Not Present - Hydration Hydration: Ice chips, Has not voided - Discharge PostOp Status: Transfer Patient to floor (patient is anemic, will recieve blood on floor)
[2017-05-18] MEDS ORDERED: *HR* Morphine 2 MG/ML SYRINGE IVP PRN (10:26)
[2017-05-18] MEDS ORDERED: Naloxone 0.4 MG/ML INJ IVP PRN ×2 (10:26)
[2017-05-18] MEDS: Acetaminophen 325 MG TABLET PO PRN (10:42)
[2017-05-18] MEDS: Clindamycin 900 MG/50 ML 900 MG/50 ML IV.SOLN IVPB SCH ×2 (12:05→17:38)
[2017-05-18] MEDS ORDERED: 0.9 % Sodium Chloride 250 ML ONE ×2 (13:21→17:22)
[2017-05-18] MEDS ORDERED: 0.9 % Sodium Chloride 500 ML IVC ONE (15:06)
[2017-05-18] MEDS ORDERED: Chloraseptic Spray 177 ML BOTTLE MM PRN (15:11)
[2017-05-18] MEDS: Gabapentin 300 MG CAPSULE PO SCH ×2 (15:17→20:28)
--- NOTE | 2017-05-18 21:00 | Event Note ---
Date of Encounter: 05/19/17 Time of Encounter: 21:00 Right hip open reduction intramedullary nail fixation 05-18-17 Outpatient follow ups made and to [facility]. 05/19/17 - 1119. PACO Solorzano
[2017-05-18 22:53] LABS: Hematocrit 29.8 % (35.3-44.9)
[2017-05-18 22:54] LABS: Hemoglobin 9.8 g/dL (11.5-15.4)
[2017-05-19] MEDS: Acetaminophen 325 MG TABLET PO PRN (03:38)
[2017-05-19 05:09] LABS: Hematocrit 25.1 % (35.3-44.9); Hemoglobin 8.3 g/dL (11.5-15.4)
--- NOTE | 2017-05-19 06:19 | Orthopedics Progress Note ---
Date of Encounter: 05/19/17 Time of Encounter: 06:18 Subjective Interval history: Patient was seen this morning doing well without complaints. Afebrile vital signs stable. Operative extremity: Neurovascularly intact Dressing clean dry and intact Calves nontender Assessment and plan: Continue with postoperative care Recheck hematocrit. Objective Vital signs: Vital Signs Temp Pulse Resp BP Pulse Ox 05/19/17 03:58 97.8 F 63 18 101/71 95 05/19/17 00:05 98.1 F 61 17 95/55 94 05/18/17 22:32 15 91 05/18/17 21:00 98.3 F 90 16 96 05/18/17 20:31 97.9 F 66 20 99/58 93 05/18/17 17:50 98.1 F 87 17 98/62 93 05/18/17 17:35 97.7 F 86 18 98/58 97 05/18/17 16:55 97.7 F 85 18 85/45 95 05/18/17 15:53 91/56 05/18/17 14:10 97.5 F L 73 15 77/47 93 05/18/17 13:55 97.5 F L 76 16 78/46 94 05/18/17 13:30 97.5 F L 76 16 78/46 94 05/18/17 12:25 97.4 F L 74 16 83/48 95 05/18/17 11:24 97.4 F L 74 16 77/51 91 05/18/17 11:01 97.5 F L 74 16 81/50 92 05/18/17 10:25 97.5 F L 72 16 82/46 93 05/18/17 10:08 97.2 F L 75 16 90/55 96 05/18/17 09:58 75 16 90/47 96 05/18/17 09:48 97.3 F L 75 16 84/47 100 05/18/17 09:38 78 16 109/69 99 05/18/17 09:28 76 16 107/62 100 05/18/17 09:18 97.7 F 84 16 140/62 100 05/18/17 07:02 98.5 F 83 15 100/60 97 Intake and Output 05/18/17 05/18/17 05/19/17 15:59 23:59 07:59 Intake Total 50 / 50 700 / 700 220 / 220 Output Total 50 / 50 700 / 700 Balance 0 / 0 700 / 700 -480 / -480 Intake: IV Fluids 50 / 50 Cleocin Premix 900 MG/50 ML 900 50 / 50 mg In 50 ml @ 50 mls/hr IVPB Q8HR [facility] Rx#:[id number] Oral 220 / 220 Blood Product 0 / 0 700 / 700 Rbcs Leuko Poor As-1 Unit 350 / 350 [id number] Rbcs Leuko Poor As-3 Ph Unit 0 / 0 350 / 350 [id number] Output: Estimated Blood Loss 50 / 50 Catheter 700 / 700 - Labs CBC & BMP: 05/19/17 04:24 05/18/17 03:45 Labs: Abnormal lab results RBC 2.48 M/mcL (3.82-4.97) L 05/18/17 03:45 Hgb 8.3 g/dL (11.5-15.4) L D 05/19/17 04:24 Hct 25.1 % (35.3-44.9) L 05/19/17 04:24 RDW 14.6 % (11.5-14.5) H 05/18/17 03:45 Sodium 131 mEq/L (136-145) L 05/18/17 03:45 Chloride 95 mEq/L (98-109) L 05/18/17 03:45 Carbon Dioxide 31 mEq/L (19-29) H 05/18/17 03:45 POC Glucose 105 (58-89) H 05/18/17 05:07 Calculated Osmolality 273 (280-300) L 05/18/17 03:45 Calcium 7.9 mg/dL (8.6-10.8) L 05/18/17 03:45 Serum Total Protein 4.6 g/dL (6.0-8.3) L 05/18/17 03:45 Albumin 2.4 g/dL (3.5-5.0) L 05/18/17 03:45 Globulin 2.2 g/dL (2.4-3.5) L 05/18/17 03:45 - VTE Documentation of Mechanical Device: Venous foot pump, device Consult Discharge Plan - Plan Referrals: Peter Magallanes MD [Primary Care Provider] -
[2017-05-19 06:54] LABS: Hematocrit 26.2 % (35.3-44.9); Hemoglobin 8.7 g/dL (11.5-15.4)
[2017-05-19] MEDS: *HR* OxyCODONE Immed Rel 5 MG TABLET PO PRN ×2 (08:04→15:13)
[2017-05-19] MEDS: Aspirin Enteric Coated 81 MG Tablet PO SCH (08:05)
[2017-05-19] MEDS: Pantoprazole 40 MG VIAL IVP SCH (08:05)
[2017-05-19] MEDS: Gabapentin 300 MG CAPSULE PO SCH ×3 (08:05→21:30)
[2017-05-19] MEDS: 0.9 % Sodium Chloride 1,000 ML IVC SCH ×2 (08:19→22:17)
[2017-05-19] MEDS ORDERED: Lisinopril 20 MG TABLET PO SCH (09:00)
--- NOTE | 2017-05-19 09:36 | Internal Med Progress Note ---
Date of Encounter: 05/18/17 Time of Encounter: 09:45 - Assessment and plan (1) HTN (hypertension) Current Visit: Yes Status: Chronic Assessment and plan: BP can run low at times. If needed, give IVF and put hold parameters on antihypertensive meds. Qualifiers: Hypertension type: essential hypertension Qualified Code(s): I10 - Essential (primary) hypertension (2) COPD (chronic obstructive pulmonary disease) Current Visit: Yes Status: Chronic Assessment and plan: Duo Nebs scheduled. Qualifiers: COPD type: emphysema Emphysema type: unspecified Qualified Code(s): J43.9 - Emphysema, unspecified (3) Fracture of right femur Current Visit: Yes Status: Acute Qualifiers: Encounter type: initial encounter Femur location: intertrochanteric Fracture type: closed Fracture alignment: nondisplaced Qualified Code(s): S72.144A - Nondisplaced intertrochanteric fracture of right femur, initial encounter for closed fracture - Subjective Interval history: Patient is ready for surgery due to pain, does not want to talk about anything. - Constitutional Vitals: Temp Pulse Resp BP Pulse Ox 97.7 F 80 14 97/59 92 05/19/17 06:47 05/19/17 06:47 05/19/17 06:47 05/19/17 06:47 05/19/17 06:47 General appearance: Present: cooperative, mild distress, A&O X 3, pleasant, answers questions appropriately Exam: Gen: exhibits discomfort CVS RRR lungs tight breath sounds with wheezing abd: nt/nd Ext: deferred due to pain Internal Medicine: Result - Labs CBC & Chem 7: 05/19/17 06:24 05/18/17 03:45 Labs: Short CBC 05/18/17 05/18/17 05/19/17 Range/Units 09:35 22:20 04:24 Hgb 8.1 L 9.8 L D 8.3 L D (11.5-15.4) g/dL Hct 24.3 L 29.8 L 25.1 L (35.3-44.9) % 05/19/17 Range/Units 06:24 Hgb 8.7 L (11.5-15.4) g/dL Hct 26.2 L (35.3-44.9) % - ABG Interpretation ABG results: PT/INR, D-dimer PT 10.4 Seconds (9.4-12.1) 05/17/17 08:47 - Impressions Impressions Hip X-Ray 05/18/17 07:38 IMPRESSION: Intraprocedural fluoroscopic spot images as above. See separate procedure report for more information. D/ / José Miguel Sheffield MD / José Miguel Sheffield MD Interpreting Provider: José Miguel Sheffield MD - VTE Documentation of Mechanical Device: Venous foot pump, device Consult Discharge Plan - Plan Referrals: Peter Magallanes MD [Primary Care Provider] -
--- NOTE | 2017-05-19 09:43 | Internal Med Progress Note ---
Date of Encounter: 05/19/17 Time of Encounter: 09:41 - Assessment and plan (1) HTN (hypertension) Current Visit: Yes Status: Chronic Assessment and plan: BP can run low at times. If needed, give IVF and put hold parameters on antihypertensive meds. Qualifiers: Hypertension type: essential hypertension Qualified Code(s): I10 - Essential (primary) hypertension (2) COPD (chronic obstructive pulmonary disease) Current Visit: Yes Status: Chronic Assessment and plan: Duo Nebs scheduled. IS given to patient and explained this helps lungs after post-op state Qualifiers: COPD type: emphysema Emphysema type: unspecified Qualified Code(s): J43.9 - Emphysema, unspecified (3) Fracture of right femur Current Visit: Yes Status: Acute Qualifiers: Encounter type: initial encounter Femur location: intertrochanteric Fracture type: closed Fracture alignment: nondisplaced Qualified Code(s): S72.144A - Nondisplaced intertrochanteric fracture of right femur, initial encounter for closed fracture - Subjective Interval history: Was hypotensive immediately after post-op, BP 77/47. She was bolused 500 cc and she returned to baseline 90s/60s. Appropriate cuff size selected. Wheezing still tight. - Constitutional Vitals: Temp Pulse Resp BP Pulse Ox 97.7 F 80 14 97/59 92 05/19/17 06:47 05/19/17 06:47 05/19/17 06:47 05/19/17 06:47 05/19/17 06:47 General appearance: Present: cooperative, mild distress, A&O X 3, pleasant, answers questions appropriately Exam: CVS: RRR Lungs: fair air exchange, inspiratory wheezing with diminished breath sounds at bases. Ext: no edema, incision c/d/i Internal Medicine: Result - Labs CBC & Chem 7: 05/19/17 06:24 05/18/17 03:45 Labs: Short CBC 05/18/17 05/18/17 05/19/17 Range/Units 09:35 22:20 04:24 Hgb 8.1 L 9.8 L D 8.3 L D (11.5-15.4) g/dL Hct 24.3 L 29.8 L 25.1 L (35.3-44.9) % 05/19/17 Range/Units 06:24 Hgb 8.7 L (11.5-15.4) g/dL Hct 26.2 L (35.3-44.9) % - ABG Interpretation ABG results: PT/INR, D-dimer PT 10.4 Seconds (9.4-12.1) 05/17/17 08:47 - Impressions Impressions Hip X-Ray 05/18/17 07:38 IMPRESSION: Intraprocedural fluoroscopic spot images as above. See separate procedure report for more information. D/ / José Miguel Sheffield MD / José Miguel Sheffield MD Interpreting Provider: José Miguel Sheffield MD - VTE Documentation of Mechanical Device: Venous foot pump, device Consult Discharge Plan - Plan Referrals: Peter Magallanes MD [Primary Care Provider] -
[2017-05-19] MEDS: Ipratropium/Albuterol Neb 3 ML IH SCH ×2 (10:28→20:11)
--- NOTE | 2017-05-19 16:58 | Electrocardiograph Report ---
[address] [address] Test Date: 2017-05-17 Pat Name: Cierra Castañeda Department: 115 Room: 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
[2017-05-19] MEDS: ADVAIR IH SCH (22:17)
[2017-05-20] MEDS: Ipratropium/Albuterol Neb 3 ML IH SCH ×3 (00:54→16:16)
[2017-05-20] MEDS: *HR* OxyCODONE Immed Rel 5 MG TABLET PO PRN ×4 (01:48→15:40)
[2017-05-20 05:47] LABS: Basophils % 0.4 %; Eosinophils # 0.2 K/mcL (0.0-0.6); Hematocrit 28.3 % (35.3-44.9); Hemoglobin 9.2 g/dL (11.5-15.4); Immature Granulocytes % 0.9 % (0-4); Lymphocytes # 0.7 K/mcL (0.6-4.6); Lymphocytes % 8.2 %; Mean Corpuscular HGB Conc 32.5 g/dL (31.6-35.5); Mean Corpuscular Hemoglobin 30.3 pg (28.0-33.3); Mean Corpuscular Volume 93.1 fL (83.0-100.0); Mean Platelet Volume 10.2 fL (9.4-12.4); Monocytes # 1.1 K/mcL (0.0-1.3); Monocytes % 13.6 %; Neutrophils # 6.1 K/mcL (1.6-8.9); Platelet Count 161 K/mcL (140-400); Red Blood Count 3.04 M/mcL (3.82-4.97); Red Cell Distribution Width 17.4 % (11.5-14.5); Segmented Neutrophils % 74.9 %
[2017-05-20 06:01] LABS: BUN/Creatinine Ratio 19 (6-26); Blood Urea Nitrogen 11 mg/dL (7-20); Calcium 7.8 mg/dL (8.6-10.8); Carbon Dioxide 29 mEq/L (19-29); Chloride 100 mEq/L (98-109); Glucose 97 mg/dL (70-99); Osmolality,Calculated 277 (280-300); Potassium 3.7 mEq/L (3.5-4.5); Sodium 134 mEq/L (136-145); eGFR For African Americans > 60 (> 60); eGFR For Non-African Americans > 60 (> 60)
--- NOTE | 2017-05-20 06:37 | Orthopedics Progress Note ---
Date of Encounter: 05/20/17 Time of Encounter: 06:37 Subjective Interval history: Patient was seen this morning doing well without complaints. Afebrile vital signs stable. Operative extremity: Neurovascularly intact Dressing clean dry and intact Calves nontender Assessment and plan: Continue with postoperative care Hematocrit 28 stable for discharge Objective Vital signs: Vital Signs Temp Pulse Resp BP Pulse Ox 05/20/17 06:29 97.9 F 80 17 103/64 98 05/20/17 00:42 97.9 F 83 18 104/64 99 05/19/17 19:19 98.5 F 83 18 101/59 97 05/19/17 16:05 97.8 F 90 15 124/65 94 05/19/17 15:16 81 106/64 05/19/17 10:30 16 98 05/19/17 06:47 97.7 F 80 14 97/59 92 Intake and Output 05/19/17 05/19/17 05/20/17 15:59 23:59 07:59 Intake Total 200 / 200 1000 / 1000 400 / 400 Output Total 100 / 100 300 / 300 Balance 100 / 100 1000 / 1000 100 / 100 Intake: IV Fluids 1000 / 1000 0.9 % Sodium Chloride 1,000 ML 1000 / 1000 @ 100 mls/hr IVC .Q10H [facility] Rx#: [id number] Oral 200 / 200 400 / 400 Output: Urine 100 / 100 300 / 300 Other: # Voids 2 - Labs CBC & BMP: 05/20/17 04:38 05/20/17 04:38 Labs: Abnormal lab results RBC 3.04 M/mcL (3.82-4.97) L 05/20/17 04:38 Hgb 9.2 g/dL (11.5-15.4) L 05/20/17 04:38 Hct 28.3 % (35.3-44.9) L 05/20/17 04:38 RDW 17.4 % (11.5-14.5) H 05/20/17 04:38 Sodium 134 mEq/L (136-145) L 05/20/17 04:38 POC Glucose 105 (58-89) H 05/18/17 05:07 Calculated Osmolality 277 (280-300) L 05/20/17 04:38 Calcium 7.8 mg/dL (8.6-10.8) L 05/20/17 04:38 Serum Total Protein 4.6 g/dL (6.0-8.3) L 05/18/17 03:45 Albumin 2.4 g/dL (3.5-5.0) L 05/18/17 03:45 Globulin 2.2 g/dL (2.4-3.5) L 05/18/17 03:45 - VTE Documentation of Mechanical Device: Venous foot pump, device Consult Discharge Plan - Plan Referrals: Peter Magallanes MD [Primary Care Provider] -
[2017-05-20] MEDS: Aspirin Enteric Coated 81 MG Tablet PO SCH (07:49)
[2017-05-20] MEDS: Gabapentin 300 MG CAPSULE PO SCH ×2 (07:49→15:39)
[2017-05-20] MEDS: Pantoprazole 40 MG VIAL IVP SCH (07:49)
[2017-05-20] MEDS ORDERED: Lisinopril 20 MG TABLET PO SCH (09:00)
[2017-05-20] MEDS: 0.9 % Sodium Chloride 1,000 ML IVC SCH (11:19)
[2017-05-20] MEDS: ADVAIR IH SCH (11:20)
[2017-05-20 11:33] VITALS: BP 104/58
--- NOTE | 2017-05-20 14:55 | Discharge Summary ---
Date of Encounter: 05/20/17 Time of Encounter: 09:40 - Discharge Diagnosis (1) Fracture of right femur Priority: Primary Status: Acute Comments: Acute fracture of right femur - intertrochanteric fracture Status post right hip open reduction and intramedullary nail fixation Patient tolerated procedure well, now hemodynamically stable, wheezing has improved Continue incentive spirometry, Oxycodone PRN DVT prophylaxis with Aspirin 325 mg PO BID for 10 days, then ASA 81 mg PO daily Follow-up with orthopedics as outpatient Discharge to [facility], continue PT/OT Qualifiers: Encounter type: initial encounter Femur location: intertrochanteric Fracture type: closed Fracture alignment: nondisplaced Qualified Code(s): S72.144A - Nondisplaced intertrochanteric fracture of right femur, initial encounter for closed fracture (2) COPD (chronic obstructive pulmonary disease) Priority: Secondary Status: Chronic Comments: COPD, stable - not in exacerbation Continue DuoNeb breathing treatment, O2 via nasal cannula, Advair Qualifiers: COPD type: emphysema Emphysema type: unspecified Qualified Code(s): J43.9 - Emphysema, unspecified (3) HTN (hypertension) Priority: Secondary Status: Chronic Comments: Hypertension, controlled, monitor Continue home dose of Lotensin, HCTZ Watch for hypotension, check blood pressure daily Qualifiers: Hypertension type: essential hypertension Qualified Code(s): I10 - Essential (primary) hypertension (4) Tobacco abuse Priority: Secondary Status: Chronic Comments: Counseled about cessation, nicotine patch (5) History of shingles Priority: Secondary Status: Chronic Comments: Recent history of shingles - has been treated Continue Neurontin - Discharge Medications Prescriptions: OxyCODONE Immed Rel [Roxicodone 5 MG] 5 mg PO Q6HR PRN #7 tablet PRN Reason: Pain ALPRAZolam [Xanax 0.25 MG Tablet] 0.25 mg PO DAILY PRN #7 tablet PRN Reason: Anxiety Aspirin 325 mg PO BID 10 Days #20 tablet Calcium Carbonate [Tums] 1,000 mg PO BID #20 tab.chew Escitalopram [Lexapro] 10 mg PO DAILY #30 tablet Gabapentin [Neurontin] 300 mg PO TID #20 capsule Home Medications: Aspirin [Lo-Dose Aspirin EC] 81 mg PO DAILY 05/17/17 [History] Atorvastatin [Lipitor] 10 mg PO HS 05/17/17 [History] Benazepril HCl [Lotensin] 20 mg PO DAILY 05/17/17 [History] DiphenhydraMINE [Benadryl] 25 mg PO Q6HR PRN 05/17/17 [History] Fluticasone/Salmeterol [Advair 500-50 Diskus] 1 puff IH BID 05/17/17 [History] Ipratropium/Albuterol Sulfate [Combivent Respimat Inhal [place]] 1 puff IH TID [History] Levothyroxine [Synthroid] 75 mcg PO DAILY 05/17/17 [History] hydroCHLOROthiazide [Hydrochlorothiazide] 25 mg PO DAILY 05/17/17 [History] ALPRAZolam [Xanax 0.25 MG Tablet] 0.25 mg PO DAILY PRN #7 tablet 05/20/17 [Rx] Aspirin 325 mg PO BID 10 Days #20 tablet 05/20/17 [Rx] Benzocaine/Menthol Justa [Cepacol Sore Throat Lozenge] 1 each MM Q2H PRN lozenge 05/20/17 [Rx] Calcium Carbonate [Tums] 1,000 mg PO BID #20 tab.chew 05/20/17 [Rx] Chloraseptic [place] [Chloraseptic] 2 spray MM QID PRN bottle 05/20/17 [Rx] Escitalopram [Lexapro] 10 mg PO DAILY #30 tablet 05/20/17 [Rx] Gabapentin [Neurontin] 300 mg PO TID #20 capsule 05/20/17 [Rx] OxyCODONE Immed Rel [Roxicodone 5 MG] 5 mg PO Q6HR PRN #7 tablet 05/20/17 [Rx] Timolol Maleate 0.5% 1 drop BOTH EYES BID bottle 05/20/17 [Rx] Allergies/Adverse Reactions: 3 Allergy/AdvReac Type Severity Reaction Status Date / Time Penicillins Allergy Rash Verified 05/17/17 02:27 Date of admission: 05/17/17 08:10 Primary care physician: Peter Magallanes MD Consults: 05/17/17 02:26 Consult to Plant Tour Guide [CONS] Routine Reason for SW Consult: Discharge planning 05/17/17 08:15 Consult to Occupational Therapy [CONS] Routine Comment: Evaluate, develop and implement POC Reason for Consult: Patient has intertrochanteric fracture of the right femur. Please assess for rehabilitation needs for post-discharge planning 05/17/17 08:16 Consult to Physical Therapy [CONS] Routine Comment: Evaluate, develop and implement POC Reason for Consult: Patient has intertrochanteric fracture of the right femur. Please assess for rehabilitation needs for post-discharge planning 05/18/17 10:26 Consult to Occupational Therapy [CONS] Routine Comment: Evaluate, develop and implement POC Reason for Consult: post hip surgery Consult to Orthopedic Navigator [CONS] [CONS] Routine Consult to Orthopedic Surgery [CONS] Routine Consulting Provider: Kike Odom Reason for Consult: Hip fracture Call Completed: Yes Consult to Physical Therapy [CONS] Routine Comment: Evaluate, develop and implement POC Reason for Consult: post hip surgery Consult to Plant Tour Guide [CONS] Routine Reason for SW Consult: post -op hip fracture RT Post Op Consult [CONS] Routine Anticipated date of discharge: 05/20/17 - Patient Status Disposition: Transfer SNF Condition: Fair Functional capacity at discharge: uses cane/walker Overall status at discharge: patient is progressing back to baseline - Discharge Instructions Follow Up With: Kike Odom MD [Partnered Physician] - 07/01/17 9:00 am Polina Clark PAC [Physician [place] Attendant] - 05/30/17 8:30 am Polina Zendejas CNP [Partnered Physician] - 08/06/17 3:30 pm Jessica Queen MD [Partnered Physician] - 03/16/18 1:10 pm Peter Magallanes MD [Primary Care Provider] - Additional Instructions: Discharge Instructions: Total Hip Replacement Please call [facility] ([phone]), your Primary Care Physician, or report to the Emergency Room if you have any of the following symptoms: Nausea, vomiting, fever greater that 101.5, swelling, chest pain, shortness of breath, increased pain/redness/drainage/odor for your incision site, numbness/ tingling, or any other concerning symptoms. ACTIVITY:Weight-bearing as tolerated for 8 weeks with hip dislocation precautions that physical therapy taught you. You may progress as tolerated under the guidance of your physical therapist. You do not need to sleep with a pillow between your legs. You can also seep on the operative side or on your stomach. MEDICATIONS: Upon discharge resume your home medications. Take all the medications as prescribed. Take a stool softener if taking narcotic pain medications. Stool softeners are only effective if you drink enough fluids. Drink 6-8 glass of water or fluids a day, unless this is not allowed for another health problem. Despite using stool softeners, if you haven't had a bowel movement in 3 days, please switch to a gentle laxative. Gentle laxatives are sold over the counter. You should have a bowel movement within 24 hours, if not call the office. You will be discharged from the hospital with a prescription for pain medication. You are encouraged to decrease the use of narcotic pain medication as tolerated. Should you require a refill, please call the office. [facility] prescribes narcotic pain medication for only 4-6 weeks after surgery. If you require pain medication beyond this time period, you may be referred to your Primary Care Physician or to the Pain Clinic for further evaluation. Plan ahead for refills on pain medication as many narcotics either need to be picked up at the office or mailed. It is best to call 48-72 hours in advance of needing a prescription refill so you don't run out of medication. To help control the post-operative pain, you may take NSAIDs (Aleve,Advil, Motrin, ibuprofen, naprosyn) or Tylenol as prescribed on the bottle in addition to the pain medication. ANTICOAGULATION (blood thinners): Continue your Aspirin, Lovenox or Coumadin as prescribed to help prevent a blood clot in the leg or in the lungs. As long as your incision remains dry and you tolerate the NSAIDs (Aleve, Advil, Motrin, Ibuprofen, Naprosyn), it is OK to use the NSAIDS while you are taking your anticoagulation medication. Should your incision start to drain, stop the NSAID and contact our office. Common symptoms of blood clot in the legs include: localized pain, swelling, calf tenderness, redness or discoloration of the skin. Blood clot in the lung symptoms include: shortness of breath, rapid pulse, sweating, and chest pain that worsens with deep breathing, coughing up blood, lightheadedness, feelings of anxiety. If you experience any of these symptoms notify your physician immediately, go to the emergency room, or if having trouble breathing, call 911. WOUND CARE: Leave the dressing on for 7 to 10days. You may change the dressing if it is saturated greater than 50%. Do not get the dressing wet at anytime. Wash your hands with antibacterial soap, rinse and dry prior to any wound care. If you have gerry the visiting nurse or rehab facility can remove the stapes 10-14 days after surgery and place steri-strips across the wound. Leave the steri-strips in place until they fall off on their own. You may let water from the shower run on top of the steri-strips. If you do not have a visiting nurse or rehab facility, you will need to return to the office at 10-14 days for the gerry to be removed. If you have itching or redness around the dressing call the office. FOLLOW-UP: Please follow up with your surgeon in the orthopedic clinic in 6 weeks from the day of surgery. If you have gerry that need to be removed, you will need to come back to the office in 10-14 days from the day of surgery. - Diet and Activity Activity: as per physical therapy, increase activity as tolerated Diet: low fat, low cholesterol, low salt diet Hospital course: Ms. Castañeda is a 77 year old female with past medical history of COPD, hypertension , thyroid disease, anxiety, depression, hyperlipidemia, thyroid disease and history of coronary artery disease. Patient presented to the ED after having sustained a fall. She tripped and injured her right hip. She was admitted for fracture of right femur. She has a ventricular trochanter fracture. She underwent right hip open reduction and intramedullary nail fixation by Dr. Odom. She is tolerating the procedure well. She is hemodynamically stable. She also had some wheezing and COPD exacerbation which is improved with DuoNeb breathing treatment. Patient is also advised to continue incentive spirometry. She is on DVT prophylaxis with aspirin 325 mg by mouth twice a day for 10 days then she can continue her aspirin 81 mg daily. Patient has been advised to return if symptoms worsen. Advised follow-up with orthopedics. She did have a slight drop in H&H and required 2 units PRBCs. Patient will require a CBC at the [facility] in 2 days' time. PT and OT have evaluated the patient. Patient is now stable for discharge to [facility]. She is tolerating oral diet well and ambulating with assistance. No other acute events or consultations during her stay in the hospital. Patient and have been explained about her condition and plan of care in detail. They understood and agreed. No unanswered questions. Patient is being discharged in stable condition. Time spent discussing smoking cessation with patient: 3 to 10 minutes - Time Spent with Patient Total time spent providing and/or coordinating discharge services: Greater than 30 minutes - Constitutional Vitals: Temp Pulse Resp BP Pulse Ox 98.1 F 88 14 104/58 93 05/20/17 11:32 05/20/17 11:32 05/20/17 11:32 05/20/17 11:32 05/20/17 11:32 General appearance: Present: cooperative, A&O X 3, pleasant, no acute distress, underweight, answers questions appropriately - Head Head exam: Present: atraumatic - Eye Eye exam: Present: EOMI - ENT ENT exam: Present: mucous membranes moist - Respiratory Respiratory exam: Present: CTAB. Absent: chest wall tenderness, rales, rhonchi , wheezes, tachypnea - Cardiovascular Cardiovascular exam: Present: RRR, +S1, +S2 - GI/Abdominal GI/Abdominal exam: Present: soft. Absent: distended, firm, guarding, tenderness - Extremities Exam Extremities exam: Present: radial pulses palpable and symmetrical. Absent: calf tenderness, cyanotic, pedal edema Additional comments: Surgical site looks okay - Neurological Exam Neurological exam: Present: alert, oriented X3, no focal deficits. Absent: facial droop, speech deficit - VTE Documentation of Mechanical Device: Venous foot pump, device
--- NOTE | 2017-05-20 14:58 | Event Note ---
Date of Encounter: 05/20/17 Time of Encounter: 14:58 PCR - Hip IM Nailing POD#.2 Labs: Stable Patient seen at bedside. Pain control: Adequate Participating in PT. All questions and concerns addressed. Educated on use of incentive spirometer, ambulation, and hydration. Patient educated on post-operative restrictions and care. Addressed: See above D/C plan: ECF once approved
--- NOTE | 2017-05-20 15:26 | Physician Discharge Referral ---
ExtendedCare Referral Info Provider in Charge after Transfer: PCP Institutional Level of Care: Skilled - Diagnosis (1) Fracture of right femur Priority: Primary Status: Acute (2) COPD (chronic obstructive pulmonary disease) Priority: Primary Status: Chronic (3) HTN (hypertension) Priority: Secondary Status: Chronic (4) Tobacco abuse Priority: Secondary Status: Chronic (5) History of shingles Priority: Secondary Status: Chronic Prognosis: Fair Aware of Diagnosis: Patient, Family Aware of Prognosis: Patient, Family - Transfer Medications Prescriptions: OxyCODONE Immed Rel [Roxicodone 5 MG] 5 mg PO Q6HR PRN #7 tablet PRN Reason: Pain ALPRAZolam [Xanax 0.25 MG Tablet] 0.25 mg PO DAILY PRN #7 tablet PRN Reason: Anxiety Calcium Carbonate [Tums] 1,000 mg PO BID #20 tab.chew Enoxaparin [Lovenox] 40 mg SQ DAILY 10 Days #10 syr Escitalopram [Lexapro] 10 mg PO DAILY #30 tablet Gabapentin [Neurontin] 300 mg PO TID #20 capsule Home Medications: Aspirin [Lo-Dose Aspirin EC] 81 mg PO DAILY 05/17/17 [History] Atorvastatin [Lipitor] 10 mg PO HS 05/17/17 [History] Benazepril HCl [Lotensin] 20 mg PO DAILY 05/17/17 [History] DiphenhydraMINE [Benadryl] 25 mg PO Q6HR PRN 05/17/17 [History] Fluticasone/Salmeterol [Advair 500-50 Diskus] 1 puff IH BID 05/17/17 [History] Ipratropium/Albuterol Sulfate [Combivent Respimat Inhal [place]] 1 puff IH TID [History] Levothyroxine [Synthroid] 75 mcg PO DAILY 05/17/17 [History] hydroCHLOROthiazide [Hydrochlorothiazide] 25 mg PO DAILY 05/17/17 [History] ALPRAZolam [Xanax 0.25 MG Tablet] 0.25 mg PO DAILY PRN #7 tablet 05/20/17 [Rx] Benzocaine/Menthol [place] [Cepacol Sore Throat Lozenge] 1 each MM Q2H PRN lozenge 05/20/17 [Rx] Calcium Carbonate [Tums] 1,000 mg PO BID #20 tab.chew 05/20/17 [Rx] Chloraseptic [place] [Chloraseptic] 2 spray MM QID PRN bottle 05/20/17 [Rx] Enoxaparin [Lovenox] 40 mg SQ DAILY 10 Days #10 syr 05/20/17 [Rx] Escitalopram [Lexapro] 10 mg PO DAILY #30 tablet 05/20/17 [Rx] Gabapentin [Neurontin] 300 mg PO TID #20 capsule 05/20/17 [Rx] OxyCODONE Immed Rel [Roxicodone 5 MG] 5 mg PO Q6HR PRN #7 tablet 05/20/17 [Rx] Timolol Maleate 0.5% 1 drop BOTH EYES BID bottle 05/20/17 [Rx] Allergies/Adverse Reactions: 3 Allergy/AdvReac Type Severity Reaction Status Date / Time Penicillins Allergy Rash Verified 05/17/17 02:27 - Respiratory Orders Oxygen / L per min (2 L via nasal cannula) Smoking Cessation: Smoking cessation has been advised. For more information, call the [place] Tobacco Quit Line at 2-609-LFXA-NOW. - Lab Orders Lab Orders: CBC (In 2 days) - Ancillary Orders May use pressure relief devices daily prn - Advance Directives Code Status: Full Code - Mobility Orders Ambulate - Rehabiliation Orders Rehab Orders: Evaluation for Physical Therapy, Evaluation for Occupational Therapy - Treatments Skin tear care topically daily PRN per policy - Diet Orders Cardiac CERTIFICATION: I certify that the transfer of the above named patient to an Extended Care Facility is necessary for the continuing treatment of the diagnosis listed. The above information is true and accurate reflection of patient's current condition. Confidential - Redisclosure prohibited without a patient's written consent.
== END 2017-05-20 16:43 | DRG 481 ==
LOC: 3ANU → 3NENU 15:49
PROVIDERS: ADMIT Student in an Organized Health Care Education/Training Program; ATTEND Internal Medicine

== ENCOUNTER 2018-03-20 21:39 | Inpatient (IN) ==
[2018-03-21] MEDS ORDERED: ALPRAZolam 0.25 MG TABLET PO PRN (01:53)
[2018-03-21] MEDS ORDERED: Ibuprofen 600 MG TABLET PO PRN (01:55)
[2018-03-21] MEDS ORDERED: Naloxone 0.4 MG/ML INJ IVP PRN (01:55)
[2018-03-21] MEDS ORDERED: Ipratropium/Albuterol Neb 3 ML IH PRN (01:55)
[2018-03-21] MEDS ORDERED: Ringers Solution, Lactated 1,000 ML IVC SCH (02:00)
--- NOTE | 2018-03-21 02:06 | Internal Med History&Physical ---
Date of Encounter: 03/21/18 Time of Encounter: 02:03 Internal Medicine - H&P: HPI Chief complaint: fall Admitted From: Home Plans for Post Hospital Care: Transfer Inp Rehab Fac History of present illness: Ms. Castañeda is a 78 year old female with a history of hypertension, COPD with ongoing tobacco dependence and frequent falls with multiple injuries in the past having had spinal issues and also a prior right hip fracture who now presents on transfer from outside hospital [place] she [place] a [place] and was found to have an acute intertrochanteric fracture of the proximal left femur with mild displacement; bones appear osteopenic. Orthopedics was consulted already and will evaluate. On my assessment she is lying in bed in no acute distress. She has some audible wheezing and was saturating in the mid 80s on 2 L supplemental oxygen. She states that she usually uses 2 L of oxygen to sleep overnight mildly dyspneic at this time; she states she was smoking earlier in the day. She denies any chest pain. She complains of mild cramping and discomfort in the left hip area but otherwise has no other complaints. Past Med Surg Social Fam HX - Past Medical History Medical history: COPD, hypertension, thyroid disease, other Psychiatric history: anxiety, depression - Past Surgical History Surgical History: appendectomy, hysterectomy - Social History Smoking Status: Current every day smoker Smokeless Tobacco Status: No Alcohol use: recent Drug use: none - Family History Mother Family Member Ethnicity: Non- Living Status: Hx Family Cardiac Disorders: Yes ([place]) Father Family Member Ethnicity: Non- Living Status: Hx Family Respiratory Disorders: Yes (Asthma) Hx Family Cancer: Yes (Prostate Cancer) Brother Family Member Ethnicity: Non- Living Status: Hx Family Cancer: Yes (Prostate) Sister Family Member Ethnicity: Non- Living Status: Hx Family Cardiac Disorders: Yes (Stroke, [place]) Hx Family Cancer: Yes (Colon) Son Family Member Ethnicity: Non- Living Status: Hx Family Cancer: Yes (SCC) Internal Medicine - H&P: Meds Aspirin [Lo-Dose Aspirin EC] 81 mg PO DAILY 05/17/17 [History] Atorvastatin [Lipitor] 10 mg PO HS 05/17/17 [History] DiphenhydraMINE [Benadryl] 25 mg PO Q6HR PRN 05/17/17 [History] Fluticasone/Salmeterol [Advair 500-50 Diskus] 1 puff IH BID 05/17/17 [History] Ipratropium/Albuterol Sulfate [Combivent Respimat Inhal [place]] 1 puff IH TID [History] Levothyroxine [Synthroid] 75 mcg PO DAILY 05/17/17 [History] hydroCHLOROthiazide [Hydrochlorothiazide] 25 mg PO DAILY 05/17/17 [History] ALPRAZolam [Xanax 0.25 MG Tablet] 0.25 mg PO DAILY PRN #7 tablet 05/20/17 [Rx] Calcium Carbonate [Tums] 1,000 mg PO BID #20 tab.chew 05/20/17 [Rx] Escitalopram [Lexapro] 10 mg PO DAILY #30 tablet 05/20/17 [Rx] Gabapentin [Neurontin] 300 mg PO TID #20 capsule 05/20/17 [Rx] OxyCODONE Immed Rel [Roxicodone 5 MG] 5 mg PO Q6HR PRN #7 tablet 05/20/17 [Rx] Timolol Maleate 0.5% 1 drop BOTH EYES BID bottle 05/20/17 [Rx] Bisacodyl [Woman's Laxative] 10 mg PO DAILY PRN 07/09/17 [History] Ferrous Sulfate [Iron] 325 mg PO DAILY 07/09/17 [History] Lactobacillus Combo No.6 [Probiotic Complex] 1 each PO DAILY 07/09/17 [History] Potassium Chloride [Klor-Con 10] 10 meq PO DAILY 07/09/17 [History] Sodium Chloride [Sodium Chloride Tab] 2 gm PO DAILY 07/09/17 [History] 3 Allergy/AdvReac Type Severity Reaction Status Date / Time Penicillins Allergy Rash Verified 05/17/17 02:27 All Systems PM: A 10-system review of systems was performed and is negative for pertinent findings except as documented above in the HPI. - Constitutional Exam: Vitals: Reviewed General: NAD, lying comfortably in bed. Skin: Warm and supple HEENT: Moist mucous membranes. No conjunctivae pallor. Neck: No lymphadenopathy. No JVD. No carotid bruits. No palpable thyroid. Chest: Normal thoracic expansion. She is wheezing and rhonchi. Heart: Normal S1 & S2; rhythmic. No rubs or murmurs. Abdomen: Non-distended, soft and non-tender to palpation. No peritoneal reaction. Extremities: No clubbing, cyanosis or edema. No calf tenderness. Normal distal pulses. Sensation intact. Tenderness on palpation of left hip but no hematoma formation. Neurological: Awake, alert and oriented to person, place and time. No focal deficits. Psych: Affect appropriate. - Assessment and plan (1) Fracture of left hip Current Visit: Yes Status: Acute Assessment and plan: Secondary to traumatic fall in associated with osteopenia. No associated dislocation. Will keep NPO for now pending orthopedics evaluation. Routine labs obtained. Qualifiers: Encounter type: initial encounter Fracture type: closed Qualified Code(s) : S72.002A - Fracture of unspecified part of neck of left femur, initial encounter for closed fracture (2) COPD (chronic obstructive pulmonary disease) Current Visit: Yes Status: Chronic Assessment and plan: Showing signs of a mild exacerbation. Will give albuterol.ipratropium now and continue q4hrs prn. Continue LABA/ICS daily. Qualifiers: COPD type: emphysema Emphysema type: unspecified Qualified Code(s): J43.9 - Emphysema, unspecified (3) HTN (hypertension) Current Visit: Yes Status: Chronic Assessment and plan: Stable. To resume home antihypertensives. Qualifiers: Hypertension type: essential hypertension Qualified Code(s): I10 - Essential (primary) hypertension (4) Hx of fall Current Visit: Yes Status: Chronic Assessment and plan: Will need PT/OT evaluation once more stable and rehab. (5) Thyroid disease Current Visit: Yes Status: Chronic Assessment and plan: Appears eumetabolic. Will check TSH and continue levothyroxine. (6) Tobacco abuse Current Visit: Yes Status: Chronic Assessment and plan: Counseled extensively on the need to stop this habit and resources made available. (7) DVT prophylaxis Current Visit: Yes Status: Acute Assessment and plan: SubQ heparin ordered for now. - Time Spent With Patient Total time spent is greater than 50% in coordination of care (as documented) at patient's floor/unit and/or counseling patient: 25 - 35 minutes
[2018-03-21] MEDS: *HR* OxyCODONE Immed Rel 5 MG TABLET PO PRN ×3 (03:33→22:04)
[2018-03-21 06:46] LABS: Basophils % 0.3 %; Eosinophils # 0.1 K/mcL (0.0-0.6); Eosinophils % 1.1 %; Hematocrit 32.5 % (35.3-44.9); Hemoglobin 10.7 g/dL (11.5-15.4); Immature Granulocytes % 0.3 % (0-4); Lymphocytes # 0.8 K/mcL (0.6-4.6); Lymphocytes % 7.5 %; Mean Corpuscular HGB Conc 32.9 g/dL (31.6-35.5); Mean Corpuscular Hemoglobin 33.6 pg (28.0-33.3); Mean Corpuscular Volume 102.2 fL (83.0-100.0); Mean Platelet Volume 10.1 fL (9.4-12.4); Monocytes # 0.9 K/mcL (0.0-1.3); Monocytes % 8.4 %; Neutrophils # 8.5 K/mcL (1.6-8.9); Platelet Count 148 K/mcL (140-400); Red Blood Count 3.18 M/mcL (3.82-4.97); Red Cell Distribution Width 12.6 % (11.5-14.5); Segmented Neutrophils % 82.4 %
[2018-03-21 06:51] LABS: INR 0.9; Prothrombin Time 10.4 Seconds (9.4-12.1)
[2018-03-21 06:54] LABS: Activated Partial Thrombo Time 34.6 Seconds (26.0-36.0)
[2018-03-21 07:08] LABS: BUN/Creatinine Ratio 31 (6-26); Blood Urea Nitrogen 15 mg/dL (8-23); Calcium 8.3 mg/dL (8.6-10.3); Carbon Dioxide 33 mEq/L (23-29); Chloride 92 mEq/L (98-107); Glucose 83 mg/dL (70-105); Osmolality,Calculated 270 (280-300); Potassium 3.3 mEq/L (3.5-5.1); Sodium 130 mEq/L (136-145); eGFR For Non-African Americans > 60 (> 60)
[2018-03-21] MEDS: *HR* Heparin 5,000 UNIT/ML VIAL SQ SCH ×2 (07:53→14:55)
[2018-03-21] MEDS: Aspirin Enteric Coated 81 MG Tablet PO SCH (07:53)
[2018-03-21] MEDS: *HR* HYDROcodone/Acet 5/325 mg TABLET PO PRN (08:02)
[2018-03-21] MEDS: Gabapentin 300 MG CAPSULE PO SCH ×3 (08:03→22:03)
[2018-03-21] MEDS ORDERED: hydroCHLOROthiazide 25 MG TABLET PO SCH (09:00)
[2018-03-21 09:15] LABS: Folate 19.6 ng/mL (3.0-16.0)
[2018-03-21] MEDS: Budesonide/Formoterol 160/4.5 1 PUFF INH IH SCH ×2 (09:46→20:35)
[2018-03-21 10:21] LABS: Amphetamine Screen,Urine Negative ng/mL (Cutoff=1000); Barbiturate Screen,Urine Negative ng/mL (Cutoff=200); Benzodiazepines Screen,Urine Negative ng/mL (Cutoff=200); Cannabinoid Screen,Urine Negative ng/mL (Cutoff = 50); Cocaine Screen,Urine Negative ng/mL (Cutoff= 300); Opiate Screen,Urine Positive ng/mL (Cutoff=300); Phencyclidine Screen,Urine Negative ng/mL (Cutoff=25)
[2018-03-21 10:24] LABS: Bilirubin,Urine Negative (Negative); Blood,Urine Moderate (Negative); Clarity,Urine Cloudy (Clear); Color,Urine Yellow (Yellow); Glucose,Urine (UA) Normal (Normal); Ketones,Urine 40 mg/dL (Negative); Leukocyte Esterase,Urine Moderate (Negative); Nitrite,Urine Positive (Negative); Protein,Urine Negative (Neg-Trace); Specific Gravity,Urine 1.014 (1.010-1.025); Urobilinogen,Urine Normal (Normal)
[2018-03-21 10:26] LABS: Bacteria,Urine Moderate per hpf (None-Few); Hyaline Casts,Urine None Seen per lpf (None-Few); RBC,Urine 15-30 per hpf (0-3); Squamous Epithelial Cell,Urine Moderate per lpf (None-Few); WBC,Urine TNTC per hpf (0-3)
[2018-03-21] MEDS: cefTRIAXone 2,000 MG in 0.9 % Sodium Chloride Mini Bag 100 ML IVPB SCH (11:13)
--- NOTE | 2018-03-21 11:50 | Internal Med Progress Note ---
Hospitalist Progress Note - Encounter Date of Encounter: 03/21/18 Time of Encounter: 08:30 - Subjective Interval History: she reports that she had mechanical fall yesterday in [facility] because she was celebrating too much from winning. still reports pain of the left LE. denies N/V/D denies fever, chills, chest pain, sob, dysuria. has had a right hip surgery in april of 2017 - Exam Vitals: Temp Pulse Resp BP Pulse Ox 98.2 F 71 18 98/58 98 03/21/18 11:11 03/21/18 11:11 03/21/18 11:11 03/21/18 11:11 03/21/18 11:11 Exam: General: Patient is alert, oriented, no acute distress, thin Head: atraumatic, normocephalic, Eye: normal appearance, PERRL, no scleral icterus, no conjunctival injection ENT: mucous membranes moist, normal external ear exam Neck: normal inspection, trachea midline, full ROM, no carotid bruits Chest: normal inspection, symmetric chest rise Respiratory: Good respiratory effort. Bilateral breath sounds are clear without wheezing, crackles, or rhonchi. Cardiovascular: Regular rate and rhythm. s1 and s2 No clicks, rubs, gallops, or murmors. Abdomen: Bowel sounds present normoactive x-4 quadrants. Abdomen is soft, nondistended. no Epigastric tenderness. No guarding or rebound. No organomegaly noted, obese musculoskeletal: no edema, no calf tenderness, moving upper extremity adn right hip. left hip ROM secondary to pain, no hematoma noted around the left hip. pulses intact Skin: warm, dry, intact. Neuro: Alert and oriented x4. Sensation light touch intact. Cranial nerves 2- 12 is intact. Not aphasic, gait is steady, rapid hand movements intact, finger- to-nose intact, Psych: Patient's affect is normal - Assessment and Plan (1) Fracture of left hip Current Visit: Yes Status: Acute Assessment and Plan: Secondary to traumatic fall in associated with osteopenia. No associated dislocation. orthopedics conulted - will follow recs vitamin D level started on 1000 units of vitamin D ionized calcium will consider bisphosphonates since she has multiple fractures She denies history of CAD, has home oxygen for copd, denies Chest pain or palpitations. is able to walk short distences and clim stairs and her limitation is due to her recent hip surgery and vertebral fracture. TTE in 2017- LVEF 60-65%. Normal LV chamber size, wall thickness and function. Mild left ventricular diastolic dysfunction. Moderately sclerotic aortic valve leaflets. Mild pulmonary hypertension. There is a small pericardial effusion present. There is no echocardiographic evidence of tamponade. Aortic Valve Gradient not evaluated will get EKG and CXR continue ASA and lipitor . (2) COPD (chronic obstructive pulmonary disease) Current Visit: Yes Status: Chronic Assessment and Plan: no wheezing on exam O2 via NC Will give albuterol.ipratropium now and continue q4hrs prn. Continue LABA/ICS daily. was counseled on smoking cessation incentive spirometry (3) UTI (urinary tract infection) Current Visit: Yes Status: Acute Assessment and Plan: started on ceftriaxone ucx (4) Hypokalemia Current Visit: Yes Status: Acute Assessment and Plan: replaced will follow BMP (5) HTN (hypertension) Current Visit: Yes Status: Chronic Assessment and Plan: Stable. hold HCTZ for now (6) Hx of fall Current Visit: Yes Status: Chronic Assessment and Plan: Will need PT/OT evaluation once more stable and rehab. vitamin D level started on vitamin D 1000 units daily (7) Tobacco abuse Current Visit: Yes Status: Chronic Assessment and Plan: Counseled extensively on the need to stop this habit and resources made available. (8) Hypothyroid Current Visit: Yes Status: Acute Assessment and Plan: on synthroid (9) DVT prophylaxis Current Visit: Yes Status: Acute Assessment and Plan: SubQ heparin - Time Spent with Patient Total time spent is greater than 50% in coordination of care (as documented) at patient's floor/unit and/or counseling patient: Internal Medicine: Result - Labs CBC & Chem 7: 03/21/18 05:57 03/21/18 05:57 Labs: Short CBC 03/21/18 Range/Units 05:57 WBC 10.4 (4.3-11.1) K/mcL Hgb 10.7 L (11.5-15.4) g/dL Hct 32.5 L (35.3-44.9) % Plt Count 148 (140-400) K/mcL Neutrophils # 8.5 (1.6-8.9) K/mcL BMP 03/21/18 05:57 Sodium 130 L Potassium 3.3 L Chloride 92 L Carbon Dioxide 33 H BUN 15 Creatinine 0.49 L Glucose 83 Calcium 8.3 L Urine 03/21/18 Range/Units 07:46 Urine Color Yellow (Yellow) Urine Clarity Cloudy A (Clear) Urine pH 6.0 (5.0-8.0) pH Units Ur Specific [place] 1.014 (1.010-1.025) Urine Protein Negative (Neg-Trace) mg/dL Urine Glucose (UA) Normal (Normal) mg/dL - ABG Interpretation ABG results: PT/INR, D-dimer PT 10.4 Seconds (9.4-12.1) 03/21/18 05:57 Consult Discharge Plan - Plan Referrals: Peter Magallanes MD [Primary Care Provider] - (1) Fracture of left hip Qualifiers: Encounter type: initial encounter Fracture type: closed Qualified Code(s): S72.002A - Fracture of unspecified part of neck of left femur, initial encounter for closed fracture (2) COPD (chronic obstructive pulmonary disease) Qualifiers: COPD type: emphysema Emphysema type: unspecified Qualified Code(s): J43.9 - Emphysema, unspecified (5) HTN (hypertension) Qualifiers: Hypertension type: essential hypertension Qualified Code(s): I10 - Essential (primary) hypertension
--- NOTE | 2018-03-21 13:44 | Orthopedic Consult Note ---
Date of Encounter: 03/21/18 Time of Encounter: 13:42 Assessment and Plan (1) Fracture of left hip Current Visit: Yes Status: Acute The diagnosis and treatment recommendations were discussed with the patient. She has a intertrochanteric fracture of the left hip and to allow her opportunity for early mobility, and for pain control and to decrease the risks associated with immobility, surgical treatment was recommended. After discussing the pros and cons of treatment options including non-operative and operative intervention, the patient has consented for left hip cephalomedullary nail to be performed. The risks and benefits of the procedure were fully explained in detail, including but not limited to the risk of infection, neurovascular injury, continued pain or stiffness, failure of surgery, reinjury , or need for additional surgery, DVT, PE, general risks of anesthesia and loss of limb or life. No guarantees were given or implied and all questions were answered. The patient understands all the risks and does wish to proceed with written consent. Appreciate medical management from primary team. Plan for surgery in AM, NPO at midnight. Qualifiers: Encounter type: initial encounter Fracture type: closed Qualified Code(s) : S72.002A - Fracture of unspecified part of neck of left femur, initial encounter for closed fracture History of Present Illness HPI: Ms. Castañeda is a 78 year old female with a history of hypertension, COPD with ongoing tobacco dependence on O2 and frequent falls who was transferred from an outside hospital after a mechanical fall onto her left hip. She [place] and was found to have an acute intertrochanteric fracture of the proximal left femur with mild displacement. She was then transferred to our facility for definitive management. She denies any chest pain or SOB. No prodromal symptoms prior to the fall. She does not typically use a walker but says that she does have one and has been told that she should be using it. She complains of mild discomfort in the left hip area but otherwise has no other complaints. Past Med Surg Social Fam HX - Past Medical History Medical history: COPD, hypertension, thyroid disease, other Psychiatric history: anxiety, depression - Past Surgical History Surgical History: appendectomy, hysterectomy, orthopedic, other - Social History Smoking Status: Current every day smoker Packs per day: 1 Smokeless Tobacco Status: No Alcohol use: heavy, recent Drug use: none - Family History Mother Family Member Ethnicity: Non- Living Status: Age at : 56 Cause of : Cardiac arrest Hx Family Cardiac Disorders: Yes ([place]) Father Family Member Ethnicity: Non- Living Status: Age at : 78 Cause of : Cancer Hx Family Respiratory Disorders: Yes (Asthma) Hx Family Cancer: Yes (Prostate) Brother Family Member Ethnicity: Non- Living Status: Hx Family Cancer: Yes (Prostate) Sister Family Member Ethnicity: Non- Living Status: Cause of : Cancer Hx Family Cardiac Disorders: Yes (Colone) Hx Family Cancer: Yes (Colon) Son Family Member Ethnicity: Non- Living Status: Age at : 42 Cause of : Cancer Hx Family Cancer: Yes Medications and Allergies Aspirin [Lo-Dose Aspirin EC] 81 mg PO DAILY 05/17/17 [History] Atorvastatin [Lipitor] 10 mg PO HS 05/17/17 [History] DiphenhydraMINE [Benadryl] 25 mg PO Q6HR PRN 05/17/17 [History] Fluticasone/Salmeterol [Advair 500-50 Diskus] 1 puff IH BID 05/17/17 [History] Ipratropium/Albuterol Sulfate [Combivent Respimat Inhal [place]] 1 puff IH TID [History] Levothyroxine [Synthroid] 75 mcg PO DAILY 05/17/17 [History] hydroCHLOROthiazide [Hydrochlorothiazide] 25 mg PO DAILY 05/17/17 [History] ALPRAZolam [Xanax 0.25 MG Tablet] 0.25 mg PO DAILY PRN #7 tablet 05/20/17 [Rx] Calcium Carbonate [Tums] 1,000 mg PO BID #20 tab.chew 05/20/17 [Rx] Escitalopram [Lexapro] 10 mg PO DAILY #30 tablet 05/20/17 [Rx] Gabapentin [Neurontin] 300 mg PO TID #20 capsule 05/20/17 [Rx] OxyCODONE Immed Rel [Roxicodone 5 MG] 5 mg PO Q6HR PRN #7 tablet 05/20/17 [Rx] Timolol Maleate 0.5% 1 drop BOTH EYES BID bottle 05/20/17 [Rx] Bisacodyl [Woman's Laxative] 10 mg PO DAILY PRN 07/09/17 [History] Ferrous Sulfate [Iron] 325 mg PO DAILY 07/09/17 [History] Lactobacillus Combo No.6 [Probiotic Complex] 1 each PO DAILY 07/09/17 [History] Potassium Chloride [Klor-Con 10] 10 meq PO DAILY 07/09/17 [History] Sodium Chloride [Sodium Chloride Tab] 2 gm PO DAILY 07/09/17 [History] 3 Allergy/AdvReac Type Severity Reaction Status Date / Time Penicillins Allergy Rash Verified 05/17/17 02:27 All Systems Reviewed: The remainder of the systems were reviewed and are negative except as noted in the HPI Physical Exam - Constitutional Vitals: Temp Pulse Resp BP Pulse Ox 98.2 F 71 18 98/58 98 03/21/18 11:11 03/21/18 11:11 03/21/18 11:11 03/21/18 11:11 03/21/18 11:11 Exam: Consult Exam: Constitutional -Vitals reviewed -The patient is well developed and well nourished. Psychiatric -The patient is alert and oriented x 3. Respiratory: -Respiratory effort normal Abdomen: -Soft abdomen -Non tender -Non distended: Left upper extremity: -No deformities. The overlying skin is intact. No obvious signs of acute trauma. -No tenderness to palpation throughout. -No significant pain with passive motion of the shoulder, elbow, wrist, and fingers within the limits of the bed. -Spontaneously moves extremity without pain -Sensation grossly intact to light touch throughout the median, radial, and ulnar distributions. -Radial pulse is present; Fingers have good capillary refill. Right upper extremity: -No deformities. The overlying skin is intact. No obvious signs of acute trauma. -No tenderness to palpation throughout. -No significant pain with passive motion of the shoulder, elbow, wrist, and fingers within the limits of the bed. -Spontaneously moves extremity without pain -Sensation grossly intact to light touch throughout the median, radial, and ulnar distributions. -Radial pulse is present; Fingers have good capillary refill. Left lower extremity: -Left leg short/ER -Tenderness to palpation over lateral hip, no tenderness over knee, ankle, and toes -Pain with log roll/IR at hip -Able to dorsiflex and plantarflex the ankle and toes. -Sensation is grossly intact to light touch throughout the sural, saphenous, superficial peroneal, and deep peroneal distributions. -Toes have good capillary refill. Right lower extremity: -No deformities. The overlying skin is intact. No obvious signs of acute trauma. -No tenderness to palpation throughout. -No pain with passive motion of the hip, knee, ankle, and toes within the limits of the bed. -No pain with axial loading of the thigh. -Able to dorsiflex and plantarflex the ankle and toes. -Sensation is grossly intact to light touch throughout the sural, saphenous, superficial peroneal, and deep peroneal distributions. -Toes have good capillary refill. Results - Labs Result Diagrams: 03/21/18 05:57 03/21/18 05:57 Labs: Abnormal lab results RBC 3.18 M/mcL (3.82-4.97) L 03/21/18 05:57 Hgb 10.7 g/dL (11.5-15.4) L 03/21/18 05:57 Hct 32.5 % (35.3-44.9) L 03/21/18 05:57 MCV 102.2 fL (83.0-100.0) H 03/21/18 05:57 MCH 33.6 pg (28.0-33.3) H 03/21/18 05:57 Sodium 130 mEq/L (136-145) L 03/21/18 05:57 Potassium 3.3 mEq/L (3.5-5.1) L 03/21/18 05:57 Chloride 92 mEq/L (98-107) L 03/21/18 05:57 Carbon Dioxide 33 mEq/L (23-29) H 03/21/18 05:57 Creatinine 0.49 mg/dL (0.60-1.20) L 03/21/18 05:57 BUN/Creatinine Ratio 31 (6-26) H 03/21/18 05:57 Calculated Osmolality 270 (280-300) L 03/21/18 05:57 Calcium 8.3 mg/dL (8.6-10.3) L 03/21/18 05:57 Folate 19.6 ng/mL (3.0-16.0) H 03/21/18 08:18 TSH 5.753 mcIU/mL (0.340-5.600) H 03/21/18 05:57 Urine Clarity Cloudy (Clear) A 03/21/18 07:46 Urine Ketones 40 mg/dL (Negative) H 03/21/18 07:46 Urine Blood Moderate (Negative) H 03/21/18 07:46 Urine Nitrite Positive (Negative) A 03/21/18 07:46 Ur Leukocyte Esterase Moderate (Negative) H 03/21/18 07:46 Urine Microscopic RBC 15-30 per hpf (0-3) H 03/21/18 07:46 Urine Microscopic WBC TNTC per hpf (0-3) H 03/21/18 07:46 Ur Squamous Epith Cells Moderate per lpf (None-Few) H 03/21/18 07:46 Urine Bacteria Moderate per hpf (None-Few) H 03/21/18 07:46 Urine Opiates Screen Positive ng/mL (Lcefix=254) H 03/21/18 07:46 H & H 03/21/18 Range/Units 05:57 Hgb 10.7 L (11.5-15.4) g/dL Hct 32.5 L (35.3-44.9) % All other labs normal. - Diagnostic results Hip x-ray: report reviewed, image reviewed (L hip minimally displaced intertrochanteric fracture) Consult Discharge Plan - Plan Referrals: Peter Magallanes MD [Primary Care Provider] -
[2018-03-22] MEDS: *HR* Heparin 5,000 UNIT/ML VIAL SQ SCH ×3 (01:24→23:59)
[2018-03-22] MEDS: *HR* HYDROcodone/Acet 5/325 mg TABLET PO PRN (01:26)
[2018-03-22 01:30] LABS: Hematocrit 29.2 % (35.3-44.9); Hemoglobin 9.5 g/dL (11.5-15.4); Mean Corpuscular HGB Conc 32.5 g/dL (31.6-35.5); Mean Corpuscular Hemoglobin 33.8 pg (28.0-33.3); Mean Corpuscular Volume 103.9 fL (83.0-100.0); Mean Platelet Volume 10.1 fL (9.4-12.4); Platelet Count 126 K/mcL (140-400); Red Blood Count 2.81 M/mcL (3.82-4.97); Red Cell Distribution Width 12.4 % (11.5-14.5)
[2018-03-22 01:50] LABS: BUN/Creatinine Ratio 29 (6-26); Blood Urea Nitrogen 15 mg/dL (8-23); Calcium 8.5 mg/dL (8.6-10.3); Carbon Dioxide 38 mEq/L (23-29); Chloride 91 mEq/L (98-107); Glucose 120 mg/dL (70-105); Osmolality,Calculated 278 (280-300); Potassium 3.3 mEq/L (3.5-5.1); Sodium 133 mEq/L (136-145); eGFR For Non-African Americans > 60 (> 60)
[2018-03-22] MEDS ORDERED: Cholecalciferol (D-3) 1,000 UNIT TABLET PO SCH (09:00)
--- NOTE | 2018-03-22 09:12 | Anesthesia Evaluation PreOp ---
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: Other (AXIETY, DEPRESSION) Other Medical History: Thyroid, Other (ANEMIA, HYPOKALEMIA, HYPOCALCEMIA) Anesthesia History: No Prior Anesthetic Complications, Past Anesthesia Alcohol Use: heavy, recent Drug use: none Medications and Allergies Aspirin [Lo-Dose Aspirin EC] 81 mg PO DAILY 05/17/17 [History] Atorvastatin [Lipitor] 10 mg PO HS 05/17/17 [History] DiphenhydraMINE [Benadryl] 25 mg PO Q6HR PRN 05/17/17 [History] Fluticasone/Salmeterol [Advair 500-50 Diskus] 1 puff IH BID 05/17/17 [History] Ipratropium/Albuterol Sulfate [Combivent Respimat Inhal [place]] 1 puff IH TID [History] Levothyroxine [Synthroid] 75 mcg PO DAILY 05/17/17 [History] hydroCHLOROthiazide [Hydrochlorothiazide] 25 mg PO DAILY 05/17/17 [History] ALPRAZolam [Xanax 0.25 MG Tablet] 0.25 mg PO DAILY PRN #7 tablet 05/20/17 [Rx] Calcium Carbonate [Tums] 1,000 mg PO BID #20 tab.chew 05/20/17 [Rx] Escitalopram [Lexapro] 10 mg PO DAILY #30 tablet 05/20/17 [Rx] Gabapentin [Neurontin] 300 mg PO TID #20 capsule 05/20/17 [Rx] OxyCODONE Immed Rel [Roxicodone 5 MG] 5 mg PO Q6HR PRN #7 tablet 05/20/17 [Rx] Timolol Maleate 0.5% 1 drop BOTH EYES BID bottle 05/20/17 [Rx] Bisacodyl [Woman's Laxative] 10 mg PO DAILY PRN 07/09/17 [History] Ferrous Sulfate [Iron] 325 mg PO DAILY 07/09/17 [History] Lactobacillus Combo No.6 [Probiotic Complex] 1 each PO DAILY 07/09/17 [History] Potassium Chloride [Klor-Con 10] 10 meq PO DAILY 07/09/17 [History] Sodium Chloride [Sodium Chloride Tab] 2 gm PO DAILY 07/09/17 [History] 3 Allergy/AdvReac Type Severity Reaction Status Date / Time Penicillins Allergy Rash Verified 05/17/17 02:27 - Meds/Allergy Pre-op Review Medications Reviewed: Yes Allergies Reviewed: Yes Beta Blockers on Current Med List: No Anesthesia Results - Labs 03/22/18 01:01 03/22/18 01:01 Abnormal lab results RBC 2.81 M/mcL (3.82-4.97) L 03/22/18 01:01 Hgb 9.5 g/dL (11.5-15.4) L 03/22/18 01:01 Hct 29.2 % (35.3-44.9) L 03/22/18 01:01 MCV 103.9 fL (83.0-100.0) H 03/22/18 01:01 MCH 33.8 pg (28.0-33.3) H 03/22/18 01:01 Plt Count 126 K/mcL (140-400) L 03/22/18 01:01 Sodium 133 mEq/L (136-145) L 03/22/18 01:01 Potassium 3.3 mEq/L (3.5-5.1) L 03/22/18 01:01 Chloride 91 mEq/L (98-107) L 03/22/18 01:01 Carbon Dioxide 38 mEq/L (23-29) H 03/22/18 01:01 Creatinine 0.52 mg/dL (0.60-1.20) L 03/22/18 01:01 BUN/Creatinine Ratio 29 (6-26) H 03/22/18 01:01 Glucose 120 mg/dL (70-105) H 03/22/18 01:01 Calculated Osmolality 278 (280-300) L 03/22/18 01:01 Calcium 8.5 mg/dL (8.6-10.3) L 03/22/18 01:01 Folate 19.6 ng/mL (3.0-16.0) H 03/21/18 08:18 TSH 5.753 mcIU/mL (0.340-5.600) H 03/21/18 05:57 Urine Clarity Cloudy (Clear) A 03/21/18 07:46 Urine Ketones 40 mg/dL (Negative) H 03/21/18 07:46 Urine Blood Moderate (Negative) H 03/21/18 07:46 Urine Nitrite Positive (Negative) A 03/21/18 07:46 Ur Leukocyte Esterase Moderate (Negative) H 03/21/18 07:46 Urine Microscopic RBC 15-30 per hpf (0-3) H 03/21/18 07:46 Urine Microscopic WBC TNTC per hpf (0-3) H 03/21/18 07:46 Ur Squamous Epith Cells Moderate per lpf (None-Few) H 03/21/18 07:46 Urine Bacteria Moderate per hpf (None-Few) H 03/21/18 07:46 Urine Opiates Screen Positive ng/mL (Qjizfd=648) H 03/21/18 07:46 Anesthesia Exam Vital Signs/O2 Sat/Glucose, Most Recent Temp Pulse Resp BP Pulse Ox 98.0 F 76 18 99/59 94 ON 2L NC 03/22/18 07:16 03/22/18 07:16 03/22/18 07:16 03/22/18 07:16 03/22/18 07:16 HEIGHT 1.63 m WEIGHT 54 kg BMI 20 NPO (# of Hours): 8 - HEENT Pupil (Motor): Pupils equal Mallampati: II Teeth: Normal Oral Opening: Greater than 3 - Cardiac Rhythm: Regular - Pulmonary Breath Sounds: bilateral Rhonchi Respiratory Effort: Symmetrical - Additional Findings Active Medications Hydrocodone Bitart/Acetaminophen ([place] 5-325 Mg) 1 tab PO Q6HR PRN PRN Reason: Moderate Pain Stop: 09/20/18 01:56 Last Admin: 03/22/18 01:26 Dose: 1 tab Albuterol/Ipratropium (Duoneb) 3 ml IH [id number] PRN PRN Reason: Shortness Of Breath/Wheezing Stop: 09/20/18 01:56 Last Admin: 03/21/18 02:58 Dose: 3 ml Alprazolam (Xanax) 0.25 mg PO DAILY PRN; Protocol PRN Reason: Anxiety Stop: 09/20/18 01:54 Aspirin (Aspirin Ec) 81 mg PO DAILY RABIA Stop: 09/20/18 09:01 Last Admin: 03/21/18 07:53 Dose: Not Given Atorvastatin Calcium (Lipitor) 10 mg PO HS RABIA Stop: 09/20/18 21:01 Last Admin: 03/21/18 22:02 Dose: 10 mg Bisacodyl (Dulcolax) 10 mg PO DAILY PRN PRN Reason: Constipation Budesonide/Formoterol Fumarate (Symbicort) 2 puff IH BIDRESP [facility] Stop: 09/20/18 10:01 Last Admin: 03/21/18 20:35 Dose: 2 puff Calcium Carbonate (Tums) 1,000 mg PO BID RABIA PRN Reason: Protocol Stop: 09/20/18 09:01 Last Admin: 03/21/18 22:02 Dose: 1,000 mg Cyclobenzaprine HCl (Flexeril) 10 mg PO TID PRN PRN Reason: Spasms Stop: 09/20/18 04:43 Diphenhydramine HCl (Benadryl) 25 mg PO Q6HR PRN PRN Reason: Itching Stop: 09/20/18 01:54 Escitalopram Oxalate (Lexapro) 10 mg PO DAILY RABIA Stop: 09/20/18 09:01 Last Admin: 03/21/18 08:03 Dose: 10 mg Ferrous Sulfate (Ferrous Sulfate) 325 mg PO DAILY RABIA Stop: 09/20/18 09:01 Last Admin: 03/21/18 07:53 Dose: Not Given Gabapentin (Neurontin) 300 mg PO TID [facility] Stop: 09/20/18 09:01 Last Admin: 03/21/18 22:03 Dose: 300 mg Heparin Sodium (Porcine) (Heparin) 5,000 unit SQ Q8HR RABIA Stop: 09/20/18 08:01 Last Admin: 03/22/18 01:24 Dose: 5,000 unit Ceftriaxone Sodium 2,000 mg/ (Sodium Chloride) 100 mls @ 200 mls/hr IVPB DAILY RABIA Stop: 09/20/18 11:01 Last Admin: 03/21/18 11:13 Dose: 200 mls/hr Sodium Chloride (0.9 % Sodium Chloride) 1,000 mls @ 60 mls/hr IVC .[id number] RABIA Stop: 09/21/18 00:01 Last Infusion: 03/22/18 04:13 Dose: 75 mls/hr Levothyroxine Sodium (Synthroid) 75 mcg PO 0630 RABIA Stop: 09/20/18 06:31 Last Admin: 03/22/18 07:03 Dose: Not Given Naloxone HCl (Narcan) 0.4 mg IVP Q2MIN PRN PRN Reason: SEE COMMENTS Stop: 09/20/18 01:56 Oxycodone HCl (Roxicodone) 5 mg PO Q6HR PRN; Protocol PRN Reason: Pain Stop: 09/20/18 01:54 Last Admin: 03/21/18 22:04 Dose: 5 mg Vitamin D (Vitamin D) 1,000 unit PO DAILY RABIA Stop: 09/21/18 09:01 Anesthesia Assess/Plan ASA Score: 4 Modified [place] Scale for Level of Consciousness: Cooperative, oriented, and tranquil Monitoring Plan: Standard Monitors Recovery Plan: PACU
[2018-03-22] MEDS: Aspirin Enteric Coated 81 MG Tablet PO SCH (09:26)
[2018-03-22] MEDS: Gabapentin 300 MG CAPSULE PO SCH ×2 (09:26→21:37)
[2018-03-22] MEDS: cefTRIAXone 2,000 MG in 0.9 % Sodium Chloride Mini Bag 100 ML IVPB SCH (09:32)
[2018-03-22] MEDS: Budesonide/Formoterol 160/4.5 1 PUFF INH IH SCH ×2 (10:46→19:29)
--- NOTE | 2018-03-22 10:56 | Internal Med Progress Note ---
Hospitalist Progress Note - Encounter Date of Encounter: 03/22/18 Time of Encounter: 10:54 - Subjective Interval History: she denies any over night events. does report that she was diagnosed with MVP previously but was never on medications. she does have difficulty with her vision and cannot distinguish surfaces which she attributes to her falls. she has never had a DEXA scan before to evaluate her for osteoporosis pain is controlled denies N/V/D denies fever, chills, chest pain, sob, dysuria. - Exam Vitals: Temp Pulse Resp BP Pulse Ox 98.0 F 76 18 99/59 94 03/22/18 07:16 03/22/18 07:16 03/22/18 07:16 03/22/18 07:16 03/22/18 07:16 Exam: General: Patient is alert, oriented, no acute distress, thin Head: atraumatic, normocephalic, Eye: normal appearance, PERRL, no scleral icterus, no conjunctival injection ENT: mucous membranes moist, normal external ear exam Neck: normal inspection, trachea midline, full ROM, no carotid bruits Chest: normal inspection, symmetric chest rise Respiratory: Good respiratory effort. Bilateral breath sounds are clear without wheezing, crackles, or rhonchi. Cardiovascular: Regular rate and rhythm. s1 and s2 No clicks, rubs, gallops, or murmors. Abdomen: Bowel sounds present normoactive x-4 quadrants. Abdomen is soft, nondistended. no Epigastric tenderness. No guarding or rebound. No organomegaly noted, obese musculoskeletal: no edema, no calf tenderness, moving upper extremity adn right hip. left hip ROM secondary to pain, no hematoma noted around the left hip. pulses intact Skin: warm, dry, intact. Neuro: Alert and oriented x4. Sensation light touch intact. Cranial nerves 2- 12 is intact. Not aphasic, Psych: Patient's affect is normal - Assessment and Plan (1) Fracture of left hip Current Visit: Yes Status: Acute Assessment and Plan: Secondary to traumatic fall in associated with osteopenia. No associated dislocation. orthopedics on board for OR 03/22/18 vitamin D level - pending 1000 units of vitamin D ionized calcium - pending will consider bisphosphonates since she has multiple fractures needs to have DEXA as OP She denies history of CAD, has home oxygen for copd, denies Chest pain or palpitations. is able to walk short distences and her limitation is due to her recent hip surgery and vertebral fracture along with poor vision TTE in 2017- LVEF 60-65%. Normal LV chamber size, wall thickness and function. Mild left ventricular diastolic dysfunction. Moderately sclerotic aortic valve leaflets. Mild pulmonary hypertension. There is a small pericardial effusion present. There is no echocardiographic evidence of tamponade. Aortic Valve Gradient not evaluated CXR: NAD EKG: NSR, normal [place], non-specific T wave abnormality continue ASA and lipitor . (2) COPD (chronic obstructive pulmonary disease) Current Visit: Yes Status: Chronic Assessment and Plan: no wheezing on exam O2 via NC, keep sats >92 Will give albuterol.ipratropium q4hrs prn. LABA/ICS was counseled on smoking cessation incentive spirometry (3) UTI (urinary tract infection) Current Visit: Yes Status: Acute Assessment and Plan: on ceftriaxone 03/21/18 - no adverse rxns noted ucx ordered will follow results (4) Hypokalemia Current Visit: Yes Status: Acute Assessment and Plan: replaced will follow BMP (5) Bicytopenia Current Visit: Yes Status: Acute Assessment and Plan: macrocytic anemia and thrombocytopenia baseline Hemoglobin 8-9, currently at baseline ? MDS B12 and folic acid WNL type and screen will transfuse if below 7 monitor CBC will consider hematology consult if levels continue to trend down (6) Hx of fall Current Visit: Yes Status: Chronic Assessment and Plan: PT/OT vitamin D level - pending vitamin D 1000 units daily (7) HTN (hypertension) Current Visit: Yes Status: Chronic Assessment and Plan: Stable. hold HCTZ for now (8) Tobacco abuse Current Visit: Yes Status: Chronic Assessment and Plan: Counseled extensively on the need to stop this habit and resources made available. (9) Hypothyroid Current Visit: Yes Status: Acute Assessment and Plan: on synthroid TSH mildly elevated to follow up with PMD with dose adjustment (10) DVT prophylaxis Current Visit: Yes Status: Acute Assessment and Plan: SubQ heparin - Time Spent with Patient Total time spent is greater than 50% in coordination of care (as documented) at patient's floor/unit and/or counseling patient: Plan of Care Discussed with: patient Internal Medicine: Result - Labs CBC & Chem 7: 03/22/18 01:01 03/22/18 01:01 Labs: Short CBC 03/22/18 Range/Units 01:01 WBC 7.8 (4.3-11.1) K/mcL Hgb 9.5 L (11.5-15.4) g/dL Hct 29.2 L (35.3-44.9) % Plt Count 126 L (140-400) K/mcL BMP 03/22/18 01:01 Sodium 133 L Potassium 3.3 L Chloride 91 L Carbon Dioxide 38 H BUN 15 Creatinine 0.52 L Glucose 120 H Calcium 8.5 L - ABG Interpretation ABG results: PT/INR, D-dimer PT 10.4 Seconds (9.4-12.1) 03/21/18 05:57 - Impressions Impressions Chest X-Ray 03/21/18 07:47 IMPRESSION: No acute findings D/ / Zita Ervin MD / Zita Ervin MD Interpreting Provider: Zita Ervin MD Consult Discharge Plan - Plan Referrals: Peter Magallanes MD [Primary Care Provider] - (1) Fracture of left hip Qualifiers: Encounter type: initial encounter Fracture type: closed Qualified Code(s): S72.002A - Fracture of unspecified part of neck of left femur, initial encounter for closed fracture (2) COPD (chronic obstructive pulmonary disease) Qualifiers: COPD type: emphysema Emphysema type: unspecified Qualified Code(s): J43.9 - Emphysema, unspecified (7) HTN (hypertension) Qualifiers: Hypertension type: essential hypertension Qualified Code(s): I10 - Essential (primary) hypertension
[2018-03-22] MEDS ORDERED: *HR* Succinylcholine 200 MG/10 ML VIAL IVP ONE (11:27)
[2018-03-22] MEDS ORDERED: Ondansetron 4 MG/2 ML VIAL ONE (11:27)
[2018-03-22] MEDS ORDERED: Lidocaine -MPF 2% 2 ML VIAL ONE (11:27)
[2018-03-22] MEDS ORDERED: Dexamethasone 4 MG/ML VIAL ONE (11:27)
[2018-03-22] MEDS ORDERED: Lidocaine -MPF 4% 5 ML AMPUL ONE (11:27)
[2018-03-22] MEDS ORDERED: *HR* Propofol 200 MG/20 ML VIAL IVP ONE (11:31)
[2018-03-22] MEDS ORDERED: *HR* FentaNYL (PF) 100 MCG/2 ML VIAL ONE (12:59)
[2018-03-22] MEDS ORDERED: *HR* PHENYLEPHRINE 1,000 MCG/10 ML SYRINGE IVP ONE (13:22)
[2018-03-22] MEDS ORDERED: *HR* Labetalol 20 MG/4 ML SYRINGE IVP PRN ×2 (14:00→16:30)
[2018-03-22] MEDS ORDERED: *HR* Morphine 2 MG/ML SYRINGE IVP PRN ×2 (14:00→16:30)
[2018-03-22] MEDS ORDERED: *HR* Morphine 10 MG/ML VIAL ONE (14:02)
--- NOTE | 2018-03-22 16:12 | Orthopedic Operative Note ---
Date of procedure: 03/22/18 Procedure: Procedure: Left hip cephalomedullary nail Preoperative diagnosis: Left hip intertrochanteric fracture Postoperative diagnosis: Same Surgeon: Donald Chavez MD Anesthesia: General EBL: 100 cc Complications: None Components used: Synthes TFNA 11 x 170 mm/130 degree nail, 95 mm helical blade, 5.0 x 34 mm locking screw Indications: This is an 78 yo female who sustained a mechanical fall onto her left side, causing her left hip pain and deformity. She was brought to an outside emergency department and imaging confirmed a left hip intertrochanteric fracture, she was then transferred to our facility for definitive management. After discussing the procedure at length, the patient elected for operative management with a cephalomedullary nail of the left hip. The risks and benefits the procedure were fully explained. Those risks included but are not limited to , infection, neurovascular injury, continued pain, arthritis, stiffness, further injury, need for further surgery, DVT, PE, loss of limb, and loss of life. The patient understood all these risks and wished to proceed. Informed consent was obtained. No guarantees were stated or implied. Operative report: The patient was assessed and cleared by the medical group prior to surgery. Patient was brought to the holding area. Left lower extremity was marked, the patient was taken to the operating room, general anesthetic was administered and she was transferred to the hospital bed. The patient's head, neck and airway were protected by anesthesia throughout the case. The patient was then transferred to the fracture table and placed in supine position with a well padded perineal post. All bony prominences were well-padded. Left leg was attached to traction device and the fracture bed. The right leg was then placed in a well leg belle and positioned out of the way of fluoroscopy. We then utilized fracture table to reduce the fracture and obtained fluoroscopic images in AP and lateral planes confirming alignment. The left lower extremity was then prepped and draped in the normal sterile orthopedic fashion. Preoperative antibiotics were given prior to incision. A surgical time out protocol was then performed. We then made an incision just proximal to the greater trochanter. We dissected down through the IT band sharply. We were then able to palpate the greater trochanter and we placed a guidepin in the appropriate starting position on the greater trochanter. We advanced the guidepin into the proximal femur and then confirmed the position in both AP and lateral planes. After confirming acceptable pin placement at the tip of the greater trochanter, we advanced the pin to the level of the lesser trochanter. We then utilized an entry reamer over the pin to open up the canal. We then placed a size 11 mm 130 degree Synthes TFNA short nail over the guide pin. We manually advanced the nail to the appropriate depth taking care to avoid any further injury to the bone. When the nail was at the appropriate depth we used the outrigger to place a guidepin for the compression blade into the femoral head. We confirmed the location of the pin on both AP and lateral x-rays. We then overdrilled the pin and placed the 95 mm blade. We then locked the nail proximally and utilized the outrigger for compression across the fracture site. After confirming acceptable alignment of the fracture, we then used the outrigger to place a distal locking screw from lateral to medial. At this point we obtained final fluoroscopic images of the left hip and femur in both AP and lateral planes. We then thoroughly irrigated the wounds and closed the IT band with 0 Vicryl. Subcutaneous tissue was closed with 2-0 strata fix, skin was closed with 3-0 strata fix and then zip line. Sterile dressing was placed, the patient was woken by anesthesia and taken transferred to PACU in stable condition. Patient tolerated procedure well with no issues. Postop plan: Patient will be transferred back to the floor and will be weight- bearing as tolerated of left lower extremity with physical therapy postoperatively. Patient is on subq heparin for DVT prophylaxis and will continue this per the hospitalist group. Was there an care management assistant present: No Estimated blood loss (cc): 100
[2018-03-22] MEDS ORDERED: *HR* OxyCODONE Immed Rel 5 MG TABLET PO PRN (16:30)
[2018-03-22] MEDS ORDERED: 0.9 % Sodium Chloride 1,000 ML IVC SCH ×2 (16:30)
[2018-03-22] MEDS ORDERED: ALPRAZolam 0.25 MG TABLET PO PRN (16:30)
[2018-03-22] MEDS ORDERED: Naloxone 0.4 MG/ML INJ IVP PRN ×2 (16:30)
[2018-03-23] MEDS: ALBUTEROL SULFATE IH SCH ×3 (00:04→15:07)
[2018-03-23] MEDS: IPRATROPIUM IH SCH ×3 (00:04→15:07)
[2018-03-23 01:20] LABS: Hematocrit 23.7 % (35.3-44.9)
[2018-03-23 01:39] LABS: BUN/Creatinine Ratio 23 (6-26); Blood Urea Nitrogen 14 mg/dL (8-23); Calcium 8.7 mg/dL (8.6-10.3); Carbon Dioxide 40 mEq/L (23-29); Chloride 93 mEq/L (98-107); Glucose 251 mg/dL (70-105); Osmolality,Calculated 283 (280-300); Potassium 4.3 mEq/L (3.5-5.1); Sodium 132 mEq/L (136-145); eGFR For Non-African Americans > 60 (> 60)
[2018-03-23 02:19] LABS: Hemoglobin 7.7 g/dL (11.5-15.4)
[2018-03-23] MEDS ORDERED: Furosemide 20 MG/2 ML VIAL IVP PRN (08:03)
[2018-03-23] MEDS ORDERED: 0.9 % Sodium Chloride 250 ML IVC SCH (08:15)
[2018-03-23] MEDS: cefTRIAXone 2,000 MG in 0.9 % Sodium Chloride Mini Bag 100 ML IVPB SCH (08:21)
[2018-03-23] MEDS: *HR* Heparin 5,000 UNIT/ML VIAL SQ SCH ×2 (08:24→15:12)
[2018-03-23] MEDS: Cholecalciferol (D-3) 1,000 UNIT TABLET PO SCH (08:25)
[2018-03-23] MEDS: Gabapentin 300 MG CAPSULE PO SCH ×3 (08:25→20:56)
[2018-03-23] MEDS: Aspirin Enteric Coated 81 MG Tablet PO SCH (08:25)
--- NOTE | 2018-03-23 09:26 | Orthopedics Progress Note ---
Date of Encounter: 03/23/18 Time of Encounter: 09:24 - Assessment and Plan (1) Fracture of left hip Current Visit: Yes Status: Acute Qualifiers: Encounter type: initial encounter Fracture type: closed Qualified Code(s) : S72.002A - Fracture of unspecified part of neck of left femur, initial encounter for closed fracture Subjective Interval history: No overnight issues. Pain tolerable AFVSS Hg 7.7 RLE: DNVI Dressing clean dry and intact Calves nontender A/P: POD#1 s/p L hip CMN Ambulate with PT PO pain control Continue DVT ppx 1 u PRBC ordered Discharge planning - will need rehab Objective Vital signs: Vital Signs Temp Pulse Resp BP Pulse Ox 03/23/18 06:50 97.8 F 97 17 155/76 95 03/23/18 03:49 97.7 F 81 16 90/47 96 03/22/18 23:25 97.7 F 98 18 97/53 94 03/22/18 19:33 98.0 F 89 16 98/52 93 03/22/18 19:30 15 95 03/22/18 18:30 97.6 F 85 15 93/54 95 03/22/18 17:30 97.6 F 90 16 105/56 93 03/22/18 17:00 97.5 F L 91 15 101/57 94 03/22/18 16:30 97.4 F L 101 16 91/55 91 03/22/18 15:55 98.4 F 95 16 104/65 95 03/22/18 15:40 100.1 F H 93 16 98/60 96 03/22/18 15:30 100.1 F H 97 16 105/64 94 03/22/18 15:20 98 16 105/62 93 03/22/18 15:10 103 16 111/57 93 03/22/18 15:00 99.9 F H 116 18 130/87 91 Intake and Output 03/22/18 03/23/18 03/23/18 23:59 07:59 15:59 Intake Total 100 / 100 240 / 240 Output Total 175 / 175 Balance -75 / -75 240 / 240 Intake: IV Fluids 100 / 100 Potassium Chloride 10 mEq/100mL 100 / 100 10 meq In 100 ml @ 100 mls/hr IVPB Q1H [facility] Rx#:[id number] Oral 240 / 240 Output: Catheter 175 / 175 Other: Meal Breakfast Percent of Meal Consumed 80% - Labs CBC & BMP: 03/23/18 00:45 03/23/18 00:45 Labs: Abnormal lab results RBC 2.81 M/mcL (3.82-4.97) L 03/22/18 01:01 Hgb 7.7 g/dL (11.5-15.4) L D 03/23/18 00:45 Hct 23.7 % (35.3-44.9) L 03/23/18 00:45 MCV 103.9 fL (83.0-100.0) H 03/22/18 01:01 MCH 33.8 pg (28.0-33.3) H 03/22/18 01:01 Plt Count 126 K/mcL (140-400) L 03/22/18 01:01 Sodium 132 mEq/L (136-145) L 03/23/18 00:45 Chloride 93 mEq/L (98-107) L 03/23/18 00:45 Carbon Dioxide 40 mEq/L (23-29) H* 03/23/18 00:45 Glucose 251 mg/dL (70-105) H 03/23/18 00:45 Folate 19.6 ng/mL (3.0-16.0) H 03/21/18 08:18 TSH 5.753 mcIU/mL (0.340-5.600) H 03/21/18 05:57 Urine Clarity Cloudy (Clear) A 03/21/18 07:46 Urine Ketones 40 mg/dL (Negative) H 03/21/18 07:46 Urine Blood Moderate (Negative) H 03/21/18 07:46 Urine Nitrite Positive (Negative) A 03/21/18 07:46 Ur Leukocyte Esterase Moderate (Negative) H 03/21/18 07:46 Urine Microscopic RBC 15-30 per hpf (0-3) H 03/21/18 07:46 Urine Microscopic WBC TNTC per hpf (0-3) H 03/21/18 07:46 Ur Squamous Epith Cells Moderate per lpf (None-Few) H 03/21/18 07:46 Urine Bacteria Moderate per hpf (None-Few) H 03/21/18 07:46 Urine Opiates Screen Positive ng/mL (Fyrdxs=631) H 03/21/18 07:46 - VTE Documentation of Mechanical Device: Venous foot pump, device Consult Discharge Plan - Plan Referrals: Peter Magallanes MD [Primary Care Provider] -
--- NOTE | 2018-03-23 10:11 | Physician Discharge Referral ---
- Diagnosis (1) Fracture of left hip Status: Acute - Transfer Medications Home Medications: Aspirin [Lo-Dose Aspirin EC] 81 mg PO DAILY 05/17/17 [History] Atorvastatin [Lipitor] 10 mg PO HS 05/17/17 [History] DiphenhydraMINE [Benadryl] 25 mg PO Q6HR PRN 05/17/17 [History] Fluticasone/Salmeterol [Advair 500-50 Diskus] 1 puff IH BID 05/17/17 [History] Ipratropium/Albuterol Sulfate [Combivent Respimat Inhal [place]] 1 puff IH TID [History] Levothyroxine [Synthroid] 75 mcg PO DAILY 05/17/17 [History] hydroCHLOROthiazide [Hydrochlorothiazide] 25 mg PO DAILY 05/17/17 [History] ALPRAZolam [Xanax 0.25 MG Tablet] 0.25 mg PO DAILY PRN #7 tablet 05/20/17 [Rx] Calcium Carbonate [Tums] 1,000 mg PO BID #20 tab.chew 05/20/17 [Rx] Escitalopram [Lexapro] 10 mg PO DAILY #30 tablet 05/20/17 [Rx] Gabapentin [Neurontin] 300 mg PO TID #20 capsule 05/20/17 [Rx] Timolol Maleate 0.5% 1 drop BOTH EYES BID bottle 05/20/17 [Rx] Bisacodyl [Woman's Laxative] 10 mg PO DAILY PRN 07/09/17 [History] Ferrous Sulfate [Iron] 325 mg PO DAILY 07/09/17 [History] Lactobacillus Combo No.6 [Probiotic Complex] 1 each PO DAILY 07/09/17 [History] Potassium Chloride [Klor-Con 10] 10 meq PO DAILY 07/09/17 [History] Sodium Chloride [Sodium Chloride Tab] 2 gm PO DAILY 07/09/17 [History] Allergies/Adverse Reactions: 3 Allergy/AdvReac Type Severity Reaction Status Date / Time Penicillins Allergy Rash Verified 03/22/18 12:59 - Respiratory Orders Smoking Cessation: Smoking cessation has been advised. For more information, call the [facility] Tobacco Quit Line at 5-198-XHQI-NOW. - Mobility Orders Ambulate - Rehabiliation Orders Rehab Potential: Fair Rehab Orders: Evaluation for Physical Therapy, Evaluation for Occupational Therapy Other: CORRECTION DISCHARGE INSTRUCTIONS Dr. Chavez PROCEDURE PERFORMED Reduction and fixation of left hip. Incision care -Keep clear dressing in place. If dressing becomes saturated, may perform daily dressing changes to the [left/right] hip with dry gauze and either paper tape or medipore tape. -Avoid soaking wound in water (no hot tubs, bathtubs, swimming pools). -May shower after 2 weeks from surgery date. Carefully wash incision with soap and water. Gently pat it dry. Don't rub the incision, or apply creams or lotions. Sit on a shower stool when showering to keep from falling. Weight bearing status -Weightbearing as tolerated to the bilateral lower extremities. Medications -Pain medication per the discharging medical doctor -Enteric coated aspirin 325 mg by mouth twice per day for 28 days from the date of the surgery. [-Resume 50,000 units of vitamin D2 weekly and 1200 mg of calcium supplementation per day.] Other -Knee high CARLEY hose 23 hours per day -Consult physical and occupational therapy for mobilization. -Up to chair with assistance at least twice per day. -Follow up with your primary care physician to discuss testing for bone mineral density. Follow-Up -Follow-up with Dr. Chavez in office in 2 weeks from the surgery date for a post-operative evaluation. -Call the office at [phone] to schedule or confirm your appointment. -Follow up with your primary care physician to discuss testing for bone mineral density - Diet Orders Regular CERTIFICATION: I certify that the transfer of the above named patient to an Extended Care Facility is necessary for the continuing treatment of the diagnosis listed. The above information is true and accurate reflection of patient's current condition. Confidential - Redisclosure prohibited without a patient's written consent.
[2018-03-23] MEDS: Budesonide/Formoterol 160/4.5 1 PUFF INH IH SCH ×2 (11:10→20:11)
[2018-03-23 11:12] LABS: Hematocrit 28.1 % (35.3-44.9); Hemoglobin 9.2 g/dL (11.5-15.4); Immature Platelets 5.6 % (1.1-6.1); Mean Corpuscular HGB Conc 32.7 g/dL (31.6-35.5); Mean Corpuscular Hemoglobin 34.5 pg (28.0-33.3); Mean Corpuscular Volume 105.2 fL (83.0-100.0); Red Blood Count 2.67 M/mcL (3.82-4.97); Red Cell Distribution Width 12.4 % (11.5-14.5)
[2018-03-23] MEDS: Ipratropium/Albuterol Neb 3 ML IH PRN (11:16)
--- NOTE | 2018-03-23 11:52 | Internal Med Progress Note ---
Hospitalist Progress Note - Encounter Date of Encounter: 03/23/18 Time of Encounter: 07:30 - Subjective Interval History: Patient was seen and examined at bedside, has no complaints denies any nausea vomiting diarrhea Did well with surgery does report minimal incisional pain of her left hip- which is controlled with oral pain medication Denies shortness of breath, chest pain, palpitations, loss of function in her extremities, swelling, abdominal pain - Exam Vitals: Temp Pulse Resp BP Pulse Ox 97.8 F 97 17 155/76 95 03/23/18 06:50 03/23/18 06:50 03/23/18 06:50 03/23/18 06:50 03/23/18 06:50 Exam: General: Patient is alert, oriented, no acute distress, thin Head: atraumatic, normocephalic, Eye: normal appearance, PERRL, no scleral icterus, no conjunctival injection ENT: mucous membranes moist, normal external ear exam Neck: normal inspection, trachea midline, full ROM, no carotid bruits Chest: normal inspection, symmetric chest rise Respiratory: Good respiratory effort. Bilateral breath sounds are clear without wheezing, crackles, or rhonchi. Cardiovascular: Regular rate and rhythm. s1 and s2 No clicks, rubs, gallops, or murmors. Abdomen: Bowel sounds present normoactive x-4 quadrants. Abdomen is soft, nondistended. no Epigastric tenderness. No guarding or rebound. No organomegaly noted, obese musculoskeletal: no edema, no calf tenderness, moving upper extremity and right hip. left dressing clean and intact , no hematoma noted around the left hip. pulses intact Skin: warm, dry, intact. Neuro: Alert and oriented x4. Sensation light touch intact. Cranial nerves 2- 12 is intact. Not aphasic, Psych: Patient's affect is normal - Assessment and Plan (1) Fracture of left hip Current Visit: Yes Status: Acute Assessment and Plan: Secondary to traumatic fall in associated with osteopenia. s/p L hip CMN orthopedics recommendations appreciated vitamin D level - pending 1000 units of vitamin D ionized calcium - pending will consider bisphosphonates since she has multiple fractures ( vitamin D and ionized calcium pending) needs to have DEXA as OP pain control DVT prophylaxis heparin SC She denies history of CAD, has home oxygen for copd, denies Chest pain or palpitations. is able to walk short distances and her limitation is due to her recent hip surgery and vertebral fracture along with poor vision TTE in 2017- LVEF 60-65%. Normal LV chamber size, wall thickness and function. Mild left ventricular diastolic dysfunction. Moderately sclerotic aortic valve leaflets. Mild pulmonary hypertension. There is a small pericardial effusion present. There is no echocardiographic evidence of tamponade. Aortic Valve Gradient not evaluated CXR: NAD EKG: NSR, normal [place], non-specific T wave abnormality continue ASA and lipitor . (2) COPD (chronic obstructive pulmonary disease) Current Visit: Yes Status: Chronic Assessment and Plan: no wheezing on exam O2 via NC, keep sats >92 Will give albuterol.ipratropium q4hrs prn. LABA/ICS was counseled on smoking cessation incentive spirometry (3) UTI (urinary tract infection) Current Visit: Yes Status: Acute Assessment and Plan: on ceftriaxone 03/21/18 - no adverse rxns noted ucx ordered will follow results (4) Hypokalemia Current Visit: Yes Status: Acute Assessment and Plan: resolved (5) Bicytopenia Current Visit: Yes Status: Acute Assessment and Plan: macrocytic anemia and thrombocytopenia baseline Hemoglobin 8-9, currently at baseline ? MDS B12 and folic acid WNL type and screen will transfuse if below 7 on labs drawn at mmidnight she had acute drop in H/h - labs however repeated at 11 Am show resolution of anemia- anemia was most likely dilutional post operation - will hold off of transfusion for now monitor CBC thrombocytopenia resolved platelet counts are now 179 (6) Hx of fall Current Visit: Yes Status: Chronic Assessment and Plan: PT/OT vitamin D level - pending vitamin D 1000 units daily (7) HTN (hypertension) Current Visit: Yes Status: Chronic Assessment and Plan: Stable. hold HCTZ for now (elevated Bicarb on BMP) (8) Tobacco abuse Current Visit: Yes Status: Chronic Assessment and Plan: Counseled extensively on the need to stop this habit and resources made available. (9) Hypothyroid Current Visit: Yes Status: Acute Assessment and Plan: on synthroid TSH mildly elevated to follow up with PMD with dose adjustment (10) DVT prophylaxis Current Visit: Yes Status: Acute Assessment and Plan: SubQ heparin - Time Spent with Patient Total time spent is greater than 50% in coordination of care (as documented) at patient's floor/unit and/or counseling patient: Internal Medicine: Result - Labs CBC & Chem 7: 03/23/18 11:01 03/23/18 00:45 Labs: Short CBC 03/23/18 03/23/18 Range/Units 00:45 11:01 WBC 10.3 (4.3-11.1) K/mcL Hgb 7.7 L D 9.2 L D (11.5-15.4) g/dL Hct 23.7 L 28.1 L (35.3-44.9) % Plt Count 179 (140-400) K/mcL BMP 03/23/18 00:45 Sodium 132 L Potassium 4.3 D Chloride 93 L Carbon Dioxide 40 H* BUN 14 Creatinine 0.60 Glucose 251 H Calcium 8.7 - ABG Interpretation ABG results: PT/INR, D-dimer PT 10.4 Seconds (9.4-12.1) 03/21/18 05:57 - Impressions Impressions Fluoroscopy 03/22/18 00:00 IMPRESSION: Postsurgical changes from internal fixation proximal left femur. D/ / Zita Ervin MD / Zita Ervin MD Interpreting Provider: Zita Ervin MD Hip X-Ray 03/22/18 15:13 IMPRESSION: Postoperative left hip internal fixation. 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
[2018-03-23 13:39] LABS: BUN/Creatinine Ratio 27 (6-26); Blood Urea Nitrogen 14 mg/dL (8-23); Carbon Dioxide 37 mEq/L (23-29); Chloride 94 mEq/L (98-107); Glucose 94 mg/dL (70-105); Osmolality,Calculated 280 (280-300); Potassium 4.2 mEq/L (3.5-5.1); Sodium 135 mEq/L (136-145); eGFR For Non-African Americans > 60 (> 60)
[2018-03-23] MEDS: *HR* HYDROcodone/Acet 5/325 mg TABLET PO PRN (18:31)
[2018-03-24] MEDS: *HR* Heparin 5,000 UNIT/ML VIAL SQ SCH ×4 (00:45→23:22)
[2018-03-24 02:32] LABS: BUN/Creatinine Ratio 29 (6-26); Blood Urea Nitrogen 15 mg/dL (8-23); Calcium 8.7 mg/dL (8.6-10.3); Carbon Dioxide 36 mEq/L (23-29); Chloride 95 mEq/L (98-107); Glucose 103 mg/dL (70-105); Osmolality,Calculated 279 (280-300); Potassium 4.5 mEq/L (3.5-5.1); Sodium 134 mEq/L (136-145); eGFR For Non-African Americans > 60 (> 60)
[2018-03-24 04:14] LABS: Hematocrit 20.9 % (35.3-44.9); Hemoglobin 6.6 g/dL (11.5-15.4); Mean Corpuscular HGB Conc 31.6 g/dL (31.6-35.5); Mean Corpuscular Hemoglobin 33.2 pg (28.0-33.3); Mean Platelet Volume 10.5 fL (9.4-12.4); Platelet Count 159 K/mcL (140-400); Red Blood Count 1.99 M/mcL (3.82-4.97); Red Cell Distribution Width 12.5 % (11.5-14.5)
[2018-03-24 07:15] LABS: Hematocrit 23.7 % (35.3-44.9); Hemoglobin 7.5 g/dL (11.5-15.4)
[2018-03-24 07:16] LABS: VBG Ionized Calcium 1.21 mmol/L (1.15-1.35)
[2018-03-24] MEDS: Aspirin Enteric Coated 81 MG Tablet PO SCH (08:51)
[2018-03-24] MEDS: Gabapentin 300 MG CAPSULE PO SCH ×3 (08:51→20:19)
[2018-03-24] MEDS: cefTRIAXone 2,000 MG in 0.9 % Sodium Chloride Mini Bag 100 ML IVPB SCH (08:51)
[2018-03-24] MEDS: Cholecalciferol (D-3) 1,000 UNIT TABLET PO SCH (08:51)
[2018-03-24] MEDS: *HR* HYDROcodone/Acet 5/325 mg TABLET PO PRN ×2 (09:02→22:36)
--- NOTE | 2018-03-24 10:09 | Internal Med Progress Note ---
Hospitalist Progress Note - Encounter Date of Encounter: 03/24/18 Time of Encounter: 10:07 - Subjective Interval History: Patient was seen and examined at bedside, has no complaints denies any nausea vomiting diarrhea Did well with surgery does report minimal incisional pain of her left hip- which is controlled with oral pain medication Denies shortness of breath, chest pain, palpitations, loss of function in her extremities, swelling, abdominal pain - Exam Vitals: Temp Pulse Resp BP Pulse Ox 97.9 F 84 16 129/77 93 03/24/18 07:03 03/24/18 07:03 03/24/18 07:03 03/24/18 07:03 03/24/18 07:03 Exam: General: Patient is alert, oriented, no acute distress, thin Head: atraumatic, normocephalic, Eye: normal appearance, PERRL, no scleral icterus, no conjunctival injection ENT: mucous membranes moist, normal external ear exam Neck: normal inspection, trachea midline, full ROM, no carotid bruits Chest: normal inspection, symmetric chest rise Respiratory: Good respiratory effort. Bilateral breath sounds are clear without wheezing, crackles, or rhonchi. Cardiovascular: Regular rate and rhythm. s1 and s2 No clicks, rubs, gallops, or murmors. Abdomen: Bowel sounds present normoactive x-4 quadrants. Abdomen is soft, nondistended. no Epigastric tenderness. No guarding or rebound. No organomegaly noted, obese musculoskeletal: no edema, no calf tenderness, moving upper extremity and right hip. left dressing clean and intact , no hematoma noted around the left hip. pulses intact Skin: warm, dry, intact. Neuro: Alert and oriented x4. Sensation light touch intact. Cranial nerves 2- 12 is intact. Not aphasic, Psych: Patient's affect is normal - Assessment and Plan (1) Fracture of left hip Current Visit: Yes Status: Acute Assessment and Plan: Secondary to traumatic fall in associated with osteopenia. s/p L hip CMN orthopedics recommendations appreciated vitamin D level - 35 1000 units of vitamin D ionized calcium - 1.21 needs to have DEXA as OP- i duscussed with her about bisphosphonates she would like to have that started by her PMD after bone scan pain control DVT prophylaxis heparin SC PT/rehab SW and CM - for rehab placement She denies history of CAD, has home oxygen for copd, denies Chest pain or palpitations. is able to walk short distances and her limitation is due to her recent hip surgery and vertebral fracture along with poor vision TTE in 2017- LVEF 60-65%. Normal LV chamber size, wall thickness and function. Mild left ventricular diastolic dysfunction. Moderately sclerotic aortic valve leaflets. Mild pulmonary hypertension. There is a small pericardial effusion present. There is no echocardiographic evidence of tamponade. Aortic Valve Gradient not evaluated CXR: NAD EKG: NSR, normal [place], non-specific T wave abnormality continue ASA and lipitor . (2) COPD (chronic obstructive pulmonary disease) Current Visit: Yes Status: Chronic Assessment and Plan: no wheezing on exam O2 via NC, keep sats >92 Will give albuterol.ipratropium q4hrs prn. LABA/ICS was counseled on smoking cessation incentive spirometry (3) UTI (urinary tract infection) Current Visit: Yes Status: Acute Assessment and Plan: secondary to e.coli on ceftriaxone 03/21/18 - no adverse rxns noted avila was discontinued (4) Bicytopenia Current Visit: Yes Status: Acute Assessment and Plan: macrocytic anemia and thrombocytopenia baseline Hemoglobin 8-9 ? MDS B12 and folic acid WNL type and screen H/H trended down on 03/23/18- repeated CBC showed H/h was at baseline, transfusion was held on 03/23/18 on 03/24/18- H/H trended down to 6.6 adn repeat cbc showed hemoglobin on 7.5 will transfuse one unit today as acute anemia is most likely secondary to post operative blood loss monitor CBC thrombocytopenia has resolved started on daily iron (5) Hx of fall Current Visit: Yes Status: Chronic Assessment and Plan: PT/OT vitamin D level -35 vitamin D 1000 units daily (6) HTN (hypertension) Current Visit: Yes Status: Chronic Assessment and Plan: Stable. hold HCTZ for now - BP stable and has acute on chronic anemia (7) Tobacco abuse Current Visit: Yes Status: Chronic Assessment and Plan: Counseled extensively on the need to stop this habit and resources made available. (8) Hypothyroid Current Visit: Yes Status: Acute Assessment and Plan: on synthroid TSH mildly elevated to follow up with PMD with dose adjustment (9) DVT prophylaxis Current Visit: Yes Status: Acute Assessment and Plan: SubQ heparin - Time Spent with Patient Total time spent is greater than 50% in coordination of care (as documented) at patient's floor/unit and/or counseling patient: Internal Medicine: Result - Labs CBC & Chem 7: 03/24/18 06:53 03/24/18 01:15 Labs: Short CBC 03/23/18 03/24/18 03/24/18 Range/Units 11:01 03:45 06:53 WBC 10.3 6.4 (4.3-11.1) K/mcL Hgb 9.2 L D 6.6 L D 7.5 L (11.5-15.4) g/dL Hct 28.1 L 20.9 L 23.7 L (35.3-44.9) % Plt Count 179 159 (140-400) K/mcL BMP 03/23/18 03/24/18 12:15 01:15 Sodium 135 L 134 L Potassium 4.2 4.5 Chloride 94 L 95 L Carbon Dioxide 37 H 36 H BUN 14 15 Creatinine 0.52 L 0.52 L Glucose 94 103 Calcium 9.0 8.7 - ABG Interpretation ABG results: PT/INR, D-dimer PT 10.4 Seconds (9.4-12.1) 03/21/18 05:57 - VTE Documentation of Mechanical Device: Venous foot pump, device Consult Discharge Plan - Plan Referrals: Peter Magallanes MD [Primary Care Provider] - (1) Fracture of left hip Qualifiers: Encounter type: initial encounter Fracture type: closed Qualified Code(s): S72.002A - Fracture of unspecified part of neck of left femur, initial encounter for closed fracture (2) COPD (chronic obstructive pulmonary disease) Qualifiers: COPD type: emphysema Emphysema type: unspecified Qualified Code(s): J43.9 - Emphysema, unspecified (6) HTN (hypertension) Qualifiers: Hypertension type: essential hypertension Qualified Code(s): I10 - Essential (primary) hypertension
[2018-03-24] MEDS ORDERED: 0.9 % Sodium Chloride 250 ML ONE (11:23)
[2018-03-24] MEDS: Ipratropium/Albuterol Neb 3 ML IH PRN (11:34)
[2018-03-24] MEDS: Budesonide/Formoterol 160/4.5 1 PUFF INH IH SCH ×2 (11:36→20:16)
[2018-03-24] MEDS: ALBUTEROL SULFATE IH SCH ×3 (11:53→20:20)
[2018-03-24] MEDS: IPRATROPIUM IH SCH ×3 (11:53→20:20)
--- NOTE | 2018-03-24 14:11 | Orthopedics Progress Note ---
Date of Encounter: 03/24/18 Time of Encounter: 14:10 - Assessment and Plan (1) Fracture of left hip Current Visit: Yes Status: Acute Qualifiers: Encounter type: initial encounter Fracture type: closed Qualified Code(s) : S72.002A - Fracture of unspecified part of neck of left femur, initial encounter for closed fracture Subjective Interval history: No overnight issues. Pain tolerable AFVSS Hg 7.5 RLE: DNVI Dressing clean dry and intact Calves nontender A/P: POD#2 s/p L hip CMN Ambulate with PT PO pain control Continue DVT ppx 1 u PRBC ordered Discharge planning - will need SNF F/u in 2 weeks Objective Vital signs: Vital Signs Temp Pulse Resp BP Pulse Ox 03/24/18 11:59 97.7 F 78 16 105/68 96 03/24/18 11:44 97.7 F 78 17 122/85 96 03/24/18 11:37 16 95 03/24/18 11:12 98.2 F 77 16 116/67 95 03/24/18 07:03 97.9 F 84 16 129/77 93 03/24/18 03:59 98.6 F 79 16 118/68 93 03/23/18 23:35 98.2 F 70 16 90/56 94 03/23/18 20:13 16 97 03/23/18 19:29 98.0 F 81 16 100/62 96 03/23/18 14:58 98.2 F 101 16 151/83 98 Intake and Output 03/23/18 03/24/18 03/24/18 23:59 07:59 15:59 Intake Total 540 / 540 Output Total 500 / 500 Balance -500 / -500 540 / 540 Intake: Oral 540 / 540 Blood Product 0 / 0 Rbcs Leuko Poor As-3 Ph Unit 0 / 0 [id number] Output: Urine 500 / 500 Other: Meal Lunch Percent of Meal Consumed 100% - Labs CBC & BMP: 03/24/18 06:53 03/24/18 01:15 Labs: Abnormal lab results RBC 1.99 M/mcL (3.82-4.97) L 03/24/18 03:45 Hgb 7.5 g/dL (11.5-15.4) L 03/24/18 06:53 Hct 23.7 % (35.3-44.9) L 03/24/18 06:53 MCV 105.0 fL (83.0-100.0) H 03/24/18 03:45 Sodium 134 mEq/L (136-145) L 03/24/18 01:15 Chloride 95 mEq/L (98-107) L 03/24/18 01:15 Carbon Dioxide 36 mEq/L (23-29) H 03/24/18 01:15 Creatinine 0.52 mg/dL (0.60-1.20) L 03/24/18 01:15 BUN/Creatinine Ratio 29 (6-26) H 03/24/18 01:15 Calculated Osmolality 279 (280-300) L 03/24/18 01:15 Folate 19.6 ng/mL (3.0-16.0) H 03/21/18 08:18 TSH 5.753 mcIU/mL (0.340-5.600) H 03/21/18 05:57 Urine Clarity Cloudy (Clear) A 03/21/18 07:46 Urine Ketones 40 mg/dL (Negative) H 03/21/18 07:46 Urine Blood Moderate (Negative) H 03/21/18 07:46 Urine Nitrite Positive (Negative) A 03/21/18 07:46 Ur Leukocyte Esterase Moderate (Negative) H 03/21/18 07:46 Urine Microscopic RBC 15-30 per hpf (0-3) H 03/21/18 07:46 Urine Microscopic WBC TNTC per hpf (0-3) H 03/21/18 07:46 Ur Squamous Epith Cells Moderate per lpf (None-Few) H 03/21/18 07:46 Urine Bacteria Moderate per hpf (None-Few) H 03/21/18 07:46 Urine Opiates Screen Positive ng/mL (Mhaftz=762) H 03/21/18 07:46 - VTE Documentation of Mechanical Device: Venous foot pump, device Consult Discharge Plan - Plan Referrals: Peter Magallanes MD [Primary Care Provider] -
[2018-03-24 19:37] LABS: Hematocrit 28.1 % (35.3-44.9); Mean Corpuscular HGB Conc 33.5 g/dL (31.6-35.5); Mean Corpuscular Hemoglobin 33.8 pg (28.0-33.3); Mean Corpuscular Volume 101.1 fL (83.0-100.0); Mean Platelet Volume 10.1 fL (9.4-12.4); Platelet Count 188 K/mcL (140-400); Red Blood Count 2.78 M/mcL (3.82-4.97); Red Cell Distribution Width 15.6 % (11.5-14.5)
[2018-03-24 19:39] LABS: Hemoglobin 9.4 g/dL (11.5-15.4)
--- NOTE | 2018-03-24 21:34 | Electrocardiograph Report ---
[address] [place] [address] Test Date: 2018-03-21 Pat Name: Cierra Castañeda Department: 114 Room: [facility] Gender: F Records Associate: : 1940 Requested By: [id number] Order Number: [id number] Reading MD: Laina Mcmahon Measurements Intervals [place] Rate: 72 P: 78 [place]: 132 QRS: 72 QRSD: 97 T: 52 QT: 335 QTc: 359 Interpretive Statements SINUS RHYTHM NONSPECIFIC T-WAVE ABNORMALITY Electronically Signed On 03-24-2018 21:33:13 EDT by Laina Mcmahon
[2018-03-25 01:22] LABS: Hematocrit 25.1 % (35.3-44.9); Hemoglobin 8.2 g/dL (11.5-15.4); Mean Corpuscular HGB Conc 32.7 g/dL (31.6-35.5); Mean Corpuscular Hemoglobin 32.5 pg (28.0-33.3); Mean Corpuscular Volume 99.6 fL (83.0-100.0); Mean Platelet Volume 10.3 fL (9.4-12.4); Platelet Count 187 K/mcL (140-400); Red Blood Count 2.52 M/mcL (3.82-4.97); Red Cell Distribution Width 15.5 % (11.5-14.5)
[2018-03-25 01:44] LABS: BUN/Creatinine Ratio 32 (6-26); Blood Urea Nitrogen 15 mg/dL (8-23); Calcium 8.6 mg/dL (8.6-10.3); Carbon Dioxide 36 mEq/L (23-29); Chloride 97 mEq/L (98-107); Glucose 102 mg/dL (70-105); Osmolality,Calculated 281 (280-300); Potassium 4.1 mEq/L (3.5-5.1); Sodium 135 mEq/L (136-145); eGFR For Non-African Americans > 60 (> 60)
[2018-03-25 01:45] LABS: % Iron Saturation 16 % (15-50); Iron 36 mcg/dL (50-170); Transferrin 160 mg/dL (203-362)
[2018-03-25] MEDS: *HR* HYDROcodone/Acet 5/325 mg TABLET PO PRN (05:53)
[2018-03-25] MEDS: Ipratropium/Albuterol Neb 3 ML IH PRN ×2 (07:23→15:26)
[2018-03-25] MEDS: Budesonide/Formoterol 160/4.5 1 PUFF INH IH SCH (07:23)
[2018-03-25] MEDS: ALBUTEROL SULFATE IH SCH ×2 (08:47→08:48)
[2018-03-25] MEDS: IPRATROPIUM IH SCH ×2 (08:47→08:48)
[2018-03-25] MEDS: *HR* Heparin 5,000 UNIT/ML VIAL SQ SCH (08:57)
[2018-03-25] MEDS: Cholecalciferol (D-3) 1,000 UNIT TABLET PO SCH (08:58)
[2018-03-25] MEDS: Aspirin Enteric Coated 81 MG Tablet PO SCH (08:58)
[2018-03-25] MEDS: Gabapentin 300 MG CAPSULE PO SCH (08:58)
[2018-03-25] MEDS: cefTRIAXone 2,000 MG in 0.9 % Sodium Chloride Mini Bag 100 ML IVPB SCH (08:58)
[2018-03-25 10:57] VITALS: BP 119/73
--- NOTE | 2018-03-25 11:28 | Physician Discharge Referral ---
ExtendedCare Referral Info Transfer To: [facility] Institutional Level of Care: Skilled - Diagnosis (1) Fracture of left hip Priority: Primary Status: Acute (2) COPD (chronic obstructive pulmonary disease) Priority: Secondary Status: Chronic (3) UTI (urinary tract infection) Priority: Secondary Status: Acute (4) Bicytopenia Priority: Secondary Status: Acute (5) Hx of fall Priority: Secondary Status: Chronic (6) HTN (hypertension) Priority: Secondary Status: Chronic (7) Tobacco abuse Priority: Secondary Status: Chronic (8) Hypothyroid Priority: Secondary Status: Acute (9) DVT prophylaxis Priority: Secondary Status: Acute - Transfer Medications Prescriptions: OxyCODONE Immed Rel [Roxicodone 5 MG] 5 mg PO Q6HR PRN 2 Days #4 tablet PRN Reason: Severe Pain Heparin 5,000 unit SQ Q8HR 10 Days #30 vial Cholecalciferol (D-3) [Vitamin D] 1,000 unit PO DAILY #30 tablet Nitrofurantoin Macrocrystal [Nitrofurantoin] 100 mg PO BID #4 capsule Home Medications: Aspirin [Lo-Dose Aspirin EC] 81 mg PO DAILY 05/17/17 [History] Atorvastatin [Lipitor] 10 mg PO HS 05/17/17 [History] DiphenhydraMINE [Benadryl] 25 mg PO Q6HR PRN 05/17/17 [History] Fluticasone/Salmeterol [Advair 500-50 Diskus] 1 puff IH BID 05/17/17 [History] Ipratropium/Albuterol Sulfate [Combivent Respimat Inhal [place]] 1 puff IH TID [History] Levothyroxine [Synthroid] 75 mcg PO DAILY 05/17/17 [History] hydroCHLOROthiazide [Hydrochlorothiazide] 25 mg PO DAILY 05/17/17 [History] ALPRAZolam [Xanax 0.25 MG Tablet] 0.25 mg PO DAILY PRN #7 tablet 05/20/17 [Rx] Calcium Carbonate [Tums] 1,000 mg PO BID #20 tab.chew 05/20/17 [Rx] Escitalopram [Lexapro] 10 mg PO DAILY #30 tablet 05/20/17 [Rx] Gabapentin [Neurontin] 300 mg PO TID #20 capsule 05/20/17 [Rx] Timolol Maleate 0.5% 1 drop BOTH EYES BID bottle 05/20/17 [Rx] Bisacodyl [Woman's Laxative] 10 mg PO DAILY PRN 07/09/17 [History] Ferrous Sulfate [Iron] 325 mg PO DAILY 07/09/17 [History] Lactobacillus Combo No.6 [Probiotic Complex] 1 each PO DAILY 07/09/17 [History] Potassium Chloride [Klor-Con 10] 10 meq PO DAILY 07/09/17 [History] Sodium Chloride [Sodium Chloride Tab] 2 gm PO DAILY 07/09/17 [History] Cholecalciferol (D-3) [Vitamin D] 1,000 unit PO DAILY #30 tablet 03/25/18 [Rx] Heparin 5,000 unit SQ Q8HR 10 Days #30 vial 03/25/18 [Rx] Nitrofurantoin Macrocrystal [Nitrofurantoin] 100 mg PO BID #4 capsule 03/25/18 [ Rx] OxyCODONE Immed Rel [Roxicodone 5 MG] 5 mg PO Q6HR PRN 2 Days #4 tablet [Rx] Allergies/Adverse Reactions: 3 Allergy/AdvReac Type Severity Reaction Status Date / Time Penicillins Allergy Rash Verified 03/22/18 12:59 - Respiratory Orders Smoking Cessation: Smoking cessation has been advised. For more information, call the [place] Tobacco Quit Line at 5-120-CUSFNOW. CERTIFICATION: I certify that the transfer of the above named patient to an Extended Care Facility is necessary for the continuing treatment of the diagnosis listed. The above information is true and accurate reflection of patient's current condition. Confidential - Redisclosure prohibited without a patient's written consent.
--- NOTE | 2018-03-25 11:50 | Discharge Summary ---
- NOTES TO OUTPATIENT PROVIDER Notes to Outpatient Provider: needs to have dexa scan. consider starting bisphosphonates for multiple fractures. follow CBC she is s/p 1 prbc post left hip operation. follow with orthopedics in 2 weeks. follow up TSH level Orders not resulted at time of discharge: Pending orders 03/22/18 XR hip complete LT [XR] Routine 03/22/18 01:01 Type and Screen [BBK] AM 04003/23/18 08:04 Red Blood Cells [BBK] Stat 03/24/18 18:19 Occult Blood,Stool [BF] Routine 03/25/18 10:22 XR hand 3V LT [XR] Routine 03/26/18 04:00 BMP [Basic Metabolic Panel] AM 0400 CBC no Diff [Complete Blood Count w/o Diff] [HEME] AM 04003/27/18 04:00 BMP [Basic Metabolic Panel] AM 0400 Date of Encounter: 03/25/18 Time of Encounter: 11:46 - Discharge Diagnosis (1) Fracture of left hip Priority: Primary Status: Acute Qualifiers: Encounter type: initial encounter Fracture type: closed Qualified Code(s) : S72.002A - Fracture of unspecified part of neck of left femur, initial encounter for closed fracture (2) COPD (chronic obstructive pulmonary disease) Priority: Secondary Status: Chronic Qualifiers: COPD type: emphysema Emphysema type: unspecified Qualified Code(s): J43.9 - Emphysema, unspecified (3) UTI (urinary tract infection) Priority: Secondary Status: Acute Qualifiers: Urinary tract infection type: acute cystitis Hematuria presence: with hematuria Qualified Code(s): N30.01 - Acute cystitis with hematuria (4) Bicytopenia Priority: Secondary Status: Acute (5) Hx of fall Priority: Secondary Status: Chronic (6) HTN (hypertension) Priority: Secondary Status: Chronic Qualifiers: Hypertension type: essential hypertension Qualified Code(s): I10 - Essential (primary) hypertension (7) Tobacco abuse Priority: Secondary Status: Chronic (8) Hypothyroid Priority: Secondary Status: Acute Qualifiers: Hypothyroidism type: acquired Qualified Code(s): E03.9 - Hypothyroidism, unspecified (9) DVT prophylaxis Priority: Secondary Status: Acute Hospital course: Ms. Castañeda is a 78 year old female with a history of hypertension, COPD with ongoing tobacco dependence and frequent falls with multiple injuries in the past having had spinal issues and also a prior right hip fracture who now presents on transfer from outside [place] a [place] and was found to have an acute intertrochanteric fracture of the proximal left femur with mild displacement; bones appear osteopenic. Orthopedics were consulted she is s/p Left hip cephalomedullary nail on 03/22. She was also found to have urinary tract infection on admission and was treated with 3 days of IV ceftriaxone and was discharged with 2 more days of nitrofurantoin to complete total of 5 days of therapy. She was also treated with heparin subcutaneous for DVT prophylaxis status post hip operation and prescription was given to continue DVT prophylaxis post hip operation as outpatient. CBC post operation trended down and she is status post 1 unit of PRBC on 03/24. CBC followed on 03/25 showed improvement in hemoglobin 8.2. Dose ferrous sulfate was continued. She is to have her CBC repeated as outpatient on 03/26 and transfuse as needed. She has history of multiple fractures within the past few years. Calcium tablets were continued throughout hospitalization, vitamin D 1000 units daily was started. Vitamin D level checked and was 35. She is to have DEXA scan as outpatient and for PCP to consider starting bisphosphonate therapy based on the results of the DEXA scan. TSH was mildly elevated 5.7 for primary care to follow-up thyroid functions and adjust Synthroid as per TFTs Physical therapy and rehabilitation were consulted and recommendations followed Social work and case management were consulted for discharge planning and recommendations followed She is to follow-up with orthopedics in 2 weeks Discharge discussed with: patient, social work, case management, marketing operations consultant - Time Spent with Patient Total time spent providing and/or coordinating discharge services: Less than 30 minutes - Discharge Medications Prescriptions: OxyCODONE Immed Rel [Roxicodone 5 MG] 5 mg PO Q6HR PRN 2 Days #4 tablet PRN Reason: Severe Pain Heparin 5,000 unit SQ Q8HR 10 Days #30 vial Cholecalciferol (D-3) [Vitamin D] 1,000 unit PO DAILY #30 tablet Nitrofurantoin Macrocrystal [Nitrofurantoin] 100 mg PO BID #4 capsule Ranitidine HCl [Acid Per Diem Registered Nurse] 150 mg PO BID #30 tablet Home Medications: Aspirin [Lo-Dose Aspirin EC] 81 mg PO DAILY 05/17/17 [History] Atorvastatin [Lipitor] 10 mg PO HS 05/17/17 [History] DiphenhydraMINE [Benadryl] 25 mg PO Q6HR PRN 05/17/17 [History] Fluticasone/Salmeterol [Advair 500-50 Diskus] 1 puff IH BID 05/17/17 [History] Ipratropium/Albuterol Sulfate [Combivent Respimat Inhal [place]] 1 puff IH TID [History] Levothyroxine [Synthroid] 75 mcg PO DAILY 05/17/17 [History] hydroCHLOROthiazide [Hydrochlorothiazide] 25 mg PO DAILY 05/17/17 [History] ALPRAZolam [Xanax 0.25 MG Tablet] 0.25 mg PO DAILY PRN #7 tablet 05/20/17 [Rx] Calcium Carbonate [Tums] 1,000 mg PO BID #20 tab.chew 05/20/17 [Rx] Escitalopram [Lexapro] 10 mg PO DAILY #30 tablet 05/20/17 [Rx] Gabapentin [Neurontin] 300 mg PO TID #20 capsule 05/20/17 [Rx] Timolol Maleate 0.5% 1 drop BOTH EYES BID bottle 05/20/17 [Rx] Bisacodyl [Woman's Laxative] 10 mg PO DAILY PRN 07/09/17 [History] Ferrous Sulfate [Iron] 325 mg PO DAILY 07/09/17 [History] Lactobacillus Combo No.6 [Probiotic Complex] 1 each PO DAILY 07/09/17 [History] Potassium Chloride [Klor-Con 10] 10 meq PO DAILY 07/09/17 [History] Sodium Chloride [Sodium Chloride Tab] 2 gm PO DAILY 07/09/17 [History] Cholecalciferol (D-3) [Vitamin D] 1,000 unit PO DAILY #30 tablet 03/25/18 [Rx] Heparin 5,000 unit SQ Q8HR 10 Days #30 vial 03/25/18 [Rx] Nitrofurantoin Macrocrystal [Nitrofurantoin] 100 mg PO BID #4 capsule 03/25/18 [ Rx] OxyCODONE Immed Rel [Roxicodone 5 MG] 5 mg PO Q6HR PRN 2 Days #4 tablet [Rx] Ranitidine HCl [Acid Per Diem Registered Nurse] 150 mg PO BID #30 tablet 03/25/18 [Rx] Allergies/Adverse Reactions: 3 Allergy/AdvReac Type Severity Reaction Status Date / Time Penicillins Allergy Rash Verified 03/22/18 12:59 Date of admission: 03/21/18 01:55 Primary care physician: Peter Magallanes MD Consults: 03/21/18 01:58 Consult to Orthopedic Surgery [CONS] Routine Consulting Provider: Orthoped[facility] Reason for Consult: 78 year old woman with a history of frequent falls, prior right hip fracture now admitted with a left intertrochanteric fracture. Call Completed: Yes 03/21/18 03:14 Consult to Nutrition [CONS] Routine Comment: Consulting Provider: NUTRITION Reason for Dietary Consult: MST Score Consult to Vegetable Grader [CONS] Routine Reason for SW Consult: Post femur fracture plan, PT requesting rehab 03/21/18 12:25 Consult to Case Management [CONS] Routine Comment: Consult to Physical Therapy [CONS] Routine Comment: Evaluate, develop and implement POC Reason for Consult: dispostion Does patient have active BEDREST order?: No Is patient medically & hemodynamically stable?: Yes Patient assessed for mobility or mobilized this visit?: Yes 03/22/18 16:30 Consult to Occupational Therapy [CONS] Routine Comment: Evaluate, develop and implement POC Reason for Consult: post hip surgery Does patient have active BEDREST order?: No Is patient medically & hemodynamically stable?: Yes Consult to Orthopedic Navigator [CONS] [CONS] Routine Consult to Physical Therapy [CONS] Routine Comment: Evaluate, develop and implement POC Reason for Consult: post hip surgery Does patient have active BEDREST order?: No Is patient medically & hemodynamically stable?: Yes Consult to Vegetable Grader [CONS] Routine Reason for SW Consult: post -op hip fracture RT Post Op Consult [CONS] Routine - Constitutional Vitals: Temp Pulse Resp BP Pulse Ox 97.9 F 73 18 119/73 94 03/25/18 10:56 03/25/18 10:56 03/25/18 10:56 03/25/18 10:56 03/25/18 10:56 Exam: General: Patient is alert, oriented, no acute distress, thin Head: atraumatic, normocephalic, Eye: normal appearance, PERRL, no scleral icterus, no conjunctival injection ENT: mucous membranes moist, normal external ear exam Neck: normal inspection, trachea midline, full ROM, no carotid bruits Chest: normal inspection, symmetric chest rise Respiratory: Good respiratory effort. Bilateral breath sounds are clear without wheezing, crackles, or rhonchi. Cardiovascular: Regular rate and rhythm. s1 and s2 No clicks, rubs, gallops, or murmors. Abdomen: Bowel sounds present normoactive x-4 quadrants. Abdomen is soft, nondistended. no Epigastric tenderness. No guarding or rebound. No organomegaly noted, obese musculoskeletal: no edema, no calf tenderness, moving upper extremity and right hip. left dressing clean and intact , no hematoma noted around the left hip. pulses intact Skin: warm, dry, intact. Neuro: Alert and oriented x4. Sensation light touch intact. Cranial nerves 2- 12 is intact. Not aphasic, Psych: Patient's affect is normal - Patient Status Disposition: Transfer SNF Condition: Fair Functional capacity at discharge: uses cane/walker Overall status at discharge: patient is progressing back to baseline - Discharge Instructions Follow Up With: Peter Magallanes MD [Primary Care Provider] - - Diet and Activity Activity: as per physical therapy Diet: regular diet - VTE Documentation of Mechanical Device: Venous foot pump, device
== END 2018-03-25 15:56 | DRG 481 ==
LOC: 3NENU → SUATTDRO 03-21 01:55
PROVIDERS: ADMIT Internal Medicine; ATTEND Internal Medicine